=== PATIENT | female | born 1950 | race Caucasian/White ===

== ENCOUNTER 2016-11-29 19:53 | Emergency (ER) | payer BC ==
[2016-11-29] MEDS ORDERED: Meclizine TAB* 12.5 MG PO ONE ×2 (20:22→21:42)
--- NOTE | 2016-11-29 21:49 | UC ---
Dylan Esparza Alfonso, scribed for Will Bill MD on 11/29/16 at 2016 . Dizzy HPI HPI Summary: This patient is a 66 year old F presenting to [facility] accompanied by a male with a chief complaint of intermittent dizziness which began one week ago. The CC is described as lightheadedness. Symptoms aggravated by getting up too quickly and turning around and alleviated by spontaneous resolution. Patient reports ear ache (pressure), and unsteady gait. Patient denies CP, nausea, nasal congestion, hearing loss, ear ringing, SOB, increased urinary frequency, dysuria , near syncope, headache, visual changes, slurred speech, and weakness in arms. She reports she is scheduled to see her PCP in two weeks. PMHx of HLD. - History Of Current Complaint Chief Complaint: UCDizziness Stated Complaint: DIZZINESS Time Seen by Provider: 11/29/16 20:09 Hx Obtained From: Patient Onset/Duration: Sudden Onset, Lasting Weeks - 1, Still Present Timing: Intermittent Episode Lasting Severity Initially: Moderate Severity Currently: Moderate Character: Lightheaded Aggravating Factor(s): Change In Head Position - getting up too quickly and turning around Associated Signs And Symptoms: Positive: Unsteady Gait - Allergies/Home Medications Allergies/Adverse Reactions: Allergies Allergy/AdvReac Type Severity Reaction Status Date / Time No Known Allergies Allergy Verified 11/29/16 20:03 Home Medications: Home Medications Aspirin [Aspirin Adult Low Strengt] 81 mg PO 11/29/16 [History] Levothyroxine Sodium [Synthroid] 112 mcg PO 11/29/16 [History] Simvastatin TAB(NF) [Zocor(NF)] 20 mg PO 1700 11/29/16 [History Confirmed ] PMH/Surg Hx/FS Hx/Imm Hx Endocrine History: Dyslipidemia - Surgical History Surgical History: Yes Surgery Procedure, Year, and Place: deviated septum - Family History Known Family History: Positive: Cardiac Disease - MD father, brothers with stents. - Social History Alcohol Use: Occasionally Substance Use Type: None Smoking Status (MU): Never Smoked Tobacco Review of Systems ENT: Ear Ache, Other - Negative nasal congestion, hearing loss, ear ringing. Respiratory: Other - Negative SOB Cardiovascular: Other - Negative CP Gastrointestinal: Other - Negative nausea Genitourinary: Other - Negative increased urinary frequency, dysuria, Neurological: Other - Positive dizziness, lightheadedness, unsteady gait; negative near syncope, headache, visual changes, slurred speech, and weakness in arms All Other Systems Reviewed And Are Negative: Yes Physical Exam Triage Information Reviewed: Yes Vital Signs: Initial Vital Signs Temp 98.7 F 11/29/16 20:00 Pulse 89 11/29/16 20:00 Resp 18 11/29/16 20:00 Pulse Ox 98 11/29/16 20:00 Vital Signs Reviewed: Yes - Additional Comments The patient is well-nourished in no acute distress and in no acute pain. The skin is warm and dry and skin color reflects adequate perfusion. HEENT: The head is normocephalic and atraumatic. The pupils are equal and reactive. EOMI. Nystagmus. The conjunctivae are clear and without drainage. Nares are patent and without drainage. Mouth reveals moist mucous membranes and the throat is without erythema and exudate. The external ears are intact. Effusion in bilateral ears. No rhinorrhea. Neck is supple with full range of motion and non-tender. There are no carotid bruits. There is no neck vein distension. Respiratory: Chest is non-tender. Lungs are clear to auscultation and breath sounds are symmetrical and equal. Cardiovascular: Heart is regular rate and rhythm. There is no murmur or rub auscultated. There is no peripheral edema and pulses are symmetrical and equal. Abdomen: The abdomen is obese,soft, and non-tender. There are normal bowel sounds heard in all four quadrants and there is no organomegaly palpated. Musculoskeletal: There is no back pain noted. Extremities are non-tender with full range of motion. There is good capillary refill. There is no peripheral edema or calf tenderness elicited. Neurological: Patient is alert and oriented to person, place and time. The patient has symmetrical motor strength in all four extremities. Cranial nerves are grossly intact. No facial droop. Psychiatric: The patient has an appropriate affect and does not exhibit any anxiety or depression Diagnostics - EKG Cardiac Rate: NL - BPM 84 Cardiac Rhythm: Sinus: Normal - 2022. Poor R wave progression. Left axis. No ST elevation. Re-Evaluation - Re-Evaluation First Eval Re-Evaluation Time: 21:40 Change: Improved Comment: She states she is felling better. Dizzy Course/Dx - Course Course Of Treatment: This patient is a 66 year old F presenting to [facility] accompanied by a male with a chief complaint of intermittent dizziness which began one week ago. The CC is described as lightheadedness. Symptoms aggravated by getting up too quickly and turning around and alleviated by spontaneous resolution. Patient reports ear ache (pressure), and unsteady gait. Patient denies CP, nausea, nasal congestion, hearing loss, ear ringing, SOB, increased urinary frequency, dysuria, near syncope, headache, visual changes, slurred speech, and weakness in arms. She reports she is scheduled to see her PCP in two weeks. PMHx of HLD. Patient will be discharged with prescription for meclizine and follow up from PCP. The patient is agreeable with this plan. - Differential Dx/Diagnosis Differential Diagnosis/HQI/PQRI: Benign Paroxysmal Positional Vertigo, Coronary Artery Disease, Dysrhythmia, Hypovolemia, Labyrinthitis, Meniere's Disease, Other - vertigo Provider Diagnoses: labyrinthitis, HTN Discharge - Discharge Plan Condition: Stable Disposition: HOME Prescriptions: Meclizine HCl [Meclizine 25] 25 mg PO QID #30 tab Patient Education Materials: Labyrinthitis (ED) Referrals: Sadnra White MD [Primary Care Provider] - 1 Week Additional Instructions: FOLLOW UP WITH YOUR PRIMARY CARE PROVIDER REGARDING HIGH BLOOD PRESSURE WITHIN THE WEEK. The documentation as recorded by the Dylan diez Alfonso accurately reflects the service I personally performed and the decisions made by me, Will Bill MD.
[2016-11-29 22:18] VITALS: BP 150/81
== END 2016-11-29 22:00 | disposition home or self-care (01) ==
LOC: UCEAST 19:53
DX: H83.09 Labyrinthitis, unspecified ear (principal); I10 Essential (primary) hypertension; E78.5 Hyperlipidemia, unspecified; R26.9 Unspecified abnormalities of gait and mobility; Z79.82 Long term (current) use of aspirin
CPT/HCPCS: 93005; 99202; A9270-GY; G0463

== ENCOUNTER 2018-09-02 06:59 | Inpatient (IN) | payer MEDICARE, BC ==
--- NOTE | 2018-09-02 07:31 | ED ---
HPI Chest Pain - HPI Summary HPI Summary: This patient is a 68 year old F presenting to ED with a chief complaint of intermittent CP since 0500 this morning. The CC is described as radiating to the L shoulder blade, L jaw, and a bit into the L arm and alleviated a bit after onset. Patient has not had any ASA today. The patient rates the pain 7/10 in severity. Symptoms aggravated by nothing. Symptoms alleviated by nothing. Patient reports SOB. Patient denies edema. Denies hx of CAD and HTN. PMHx of HLD. Fam Hx father of DC, two sisters and one brother who both had stents, one brother who of DC. Patient is a nonsmoker and does not drink alcohol. Patient had a stress test done about 5-6 years ago and she did fine. - History of Current Complaint Chief Complaint: EDChestPainROMI Hx Obtained From: Patient Onset/Duration: Started Hours Ago - since 0500 this morning, Still Present Timing: Intermittent, Lasting Hours Initial Severity: Severe Current Severity: Moderate Pain Intensity: 7 Pain Scale Used: 0-10 Numeric - currently 7/10 Chest Pain Radiates: Yes Chest Pain Radiates To:: Shoulder - L shoulder blade, Arm - a bit into the left arm, Jaw - left Aggravating Factor(s): Nothing Alleviating Factor(s): Nothing Associated Signs and Symptoms: Positive: Chest Pain, Shortness of Breath. Negative: Swelling, Edema - Allergy/Home Medications Allergies/Adverse Reactions: Allergies Allergy/AdvReac Type Severity Reaction Status Date / Time No Known Allergies Allergy Verified 11/29/16 20:03 PMH/Surg Hx/FS Hx/Imm Hx Endocrine/Hematology History: Reports: Hx Thyroid Disease Denies: Hx Diabetes Cardiovascular History: Reports: Hx Hypercholesterolemia Denies: Hx Hypertension - Surgical History Surgery Procedure, Year, and Place: deviated septum Infectious Disease History: No Infectious Disease History: Denies: Traveled Outside the [place] in Last 30 Days - Family History Known Family History: Positive: Cardiac Disease - [place] father, brothers with stents. - Social History Alcohol Use: Occasionally Substance Use Type: Reports: None Smoking Status (MU): Former Smoker Review of Systems Negative: Fever, Chills Negative: Erythema Negative: Sore Throat Positive: Chest Pain Positive: Shortness Of Breath. Negative: Cough Negative: Abdominal Pain, Vomiting, Nausea Negative: dysuria, hematuria Negative: Myalgia, Edema Negative: Rash Neurological: Other - denies dizziness All Other Systems Reviewed And Are Negative: Yes Physical Exam - Summary Physical Exam Summary: Constitutional: Well-developed, Well-nourished, Alert. (-) Distressed Skin: Warm, Dry HENT: Normocephalic; Atraumatic Eyes: Conjunctiva normal Neck: Musculoskeletal ROM normal neck. (-) JVD, (-) Stridor, (-) Tracheal deviation Cardio: Rhythm regular, rate normal, Heart sounds normal; Intact distal pulses; The pedal pulses are 2+ and symmetric. Radial pulses are 2+ and symmetric. (-) Murmur Pulmonary/Chest wall: Effort normal. (-) Respiratory distress, (-) Wheezes, (-) Rales Abd: Soft, (-) tenderness, (-) Distension, (-) Guarding, (-) Rebound Musculoskeletal: (-) Edema Lymph: (-) Cervical adenopathy Neuro: Alert, Oriented x3 Psych: Mood and affect Normal Triage Information Reviewed: Yes Vital Signs On Initial Exam: Initial Vitals Pulse BP Pulse Ox 100 163/86 100 09/02/18 07:10 09/02/18 07:10 09/02/18 07:10 Vital Signs Reviewed: Yes Diagnostics - Vital Signs Vital Signs Temp Pulse Resp BP Pulse Ox 09/02/18 07:28 92 25 09/02/18 07:14 98.7 F 95 25 163/86 99 09/02/18 07:11 99 99 09/02/18 07:10 100 163/86 100 - Laboratory Result Diagrams: 09/02/18 07:50 09/02/18 07:50 Lab Statement: Any lab studies that have been ordered have been reviewed, and results considered in the medical decision making process. - Radiology CXR Radiology Interpretation Completed By: Radiologist Summary of Radiographic Findings: Potential bronchopneumonia superimposed on chronic obstructive pulmonary disease. Correlate with clinical assessment. Dr. Reynolds has reviewed this radiology report. - EKG 0703 Cardiac Rate: NL - 96 BPM EKG Rhythm: Sinus Rhythm Summary of EKG Findings: No STEMI 0826 Cardiac Rate: NL - 93 BPM EKG Rhythm: Sinus Rhythm Summary of EKG Findings: No STEMI Re-Evaluation - Re-Evaluation First Eval Re-Evaluation Time: 08:44 Change: Improved Comment: The patient says that her pain is down to 3/10. Chest Pain Course/Dx - Course Assessment/Plan: This patient is a 68 year old F presenting to ED with a chief complaint of intermittent CP since 0500 this morning. In the ED course, the patient was given NTG and ASA. 1st EKG reveals NSR at 96 BPM and no STEMI. 2nd EKG reveals NSR at 93 BPM and no STEMI. CXR reveals potential bronchopneumonia superimposed on chronic obstructive pulmonary disease. Correlate with clinical assessment. Consulted Dr. Robin at 0837 about the patient's case and he says that the patients signs and sx are consistent with acute DC. He recommends brilinta, heparin drip, and bolus. He will come to see the patient in the ED. Consulted Dr. Henry at 0929 about the patient's case and she accepts the patient for admission. The patient will be admitted with dx of NSTEMI and ACS. Patient understands and agrees with this plan. - Chest Pain Differential Diagnosis/HQI/PQRI: ACS, Other: - NSTEMI - Diagnoses Provider Diagnoses: NSTEMI (non-ST elevated myocardial infarction) - Provider Notifications Discussed Care Of Patient With: Robbie Robin Time Discussed With Above Provider: 08:37 Instructed by Provider To: Other - Consulted Dr. Robin at 0837 about the patient's case and he says that the patients signs and sx are consistent with acute DC. He recommends brilinta, heparin drip, and bolus. He will come to see the patient in the ED. Consulted Dr. Henry at 0929 about the patient's case and she accepts the patient for admission. - Critical Care Time Critical Care Time: 30-74 min - 45 minutes Discharge - Sign-Out/Discharge Documenting (check all that apply): Patient Departure - admit Patient Received Moderate/Deep Sedation with Procedure: No - Discharge Plan Condition: Stable Disposition: ADMITTED TO [facility] Referrals: Sandra White MD [Primary Care Provider] - - Attestation Statements Document Initiated by Scribe: Yes Documenting Scribe: Mason Cavazos Provider For Whom Scribe is Documenting (Include Credential): Wilman Reynolds MD Scribe Attestation: Mason Esparza, scribed for Wilman Reynolds MD on 05/16/19 at 0937. Status of Scribe Document: Ready
[2018-09-02] MEDS ORDERED: Aspirin 81 mg CHEW TAB* 81 MG TAB.CHEW PO ONE (07:37)
[2018-09-02] MEDS ORDERED: Nitroglycerin TAB 0.4 MG* 0.4 MG TAB SL ONE (07:37)
[2018-09-02 08:09] LABS: Hematocrit 43 % (35-47); Hemoglobin 14.2 g/dL (12.0-16.0); Mean Corpuscular HGB Conc 33 g/dL (31-36); Mean Corpuscular Hemoglobin 31 pg (27-31); Mean Corpuscular Volume 93 fL (80-97); Mean Platelet Volume 9.7 fL (7.4-10.4); Platelet Count 225 10^3/uL (150-450); Red Blood Count 4.59 10^6 /uL (3.70-4.87); Red Cell Distribution Width 13 % (10.5-15); White Blood Count 7.1 10^3/uL (3.5-10.8)
[2018-09-02 08:14] LABS: Activated Partial Thrombo Time 28.7 seconds (26.0-36.3); INR 0.96 (0.82-1.09)
[2018-09-02 08:29] LABS: BUN/Creatinine Ratio 20.2 (8-20); Calcium 9.6 mg/dL (8.6-10.3); EGFR African American 81.1 (>60); Potassium 4.1 mmol/L (3.5-5.0); Total Bilirubin 0.5 mg/dL (0.2-1.0); Troponin I 0.12 ng/mL (<0.04)
[2018-09-02] MEDS ORDERED: Nitro 2% OINT* (Nitroglycerin) 1 INCH/PAK PAK TOPICAL ONE (08:42)
[2018-09-02] MEDS ORDERED: Ticagrelor* 90 MG TAB PO ONE (08:49)
[2018-09-02] MEDS ORDERED: Heparin VIAL(*) 5000 UNITS/ML VIAL (FIVE THOUSAND) IV PRN (08:58)
[2018-09-02] MEDS ORDERED: Heparin DRIP 25,000 UNITS(*) 25,000 UNITS/500 ML BAG IV SCH (09:00)
[2018-09-02] MEDS ORDERED: Metoprolol Tartrate IV* 1 MG/ML 5 ML VIAL IV ONE ×2 (09:32→09:40)
[2018-09-02] MEDS ORDERED: Heparin VIAL(*) 5000 UNITS/ML VIAL (FIVE THOUSAND) IV SCH (10:00)
--- NOTE | 2018-09-02 10:01 | CONSULT ---
Subjective Date of Service: 09/02/18 Interval History: Date of admission and consult 09/02/2018 Service; Hospitalist PMD: Dr. White CC: Chest pain Reason for consult: Suspected type 1 CA HPI Mercy Sanz is a 68 year old woman with a history as below. She limited by knee pain up stairs but otherwise has no activity restrictions. This AM at 5 :30 she developed chest, b/l jaw and left scapular pain. She presented to the ER and ruled in for ACS with an abnormal troponin level. She received aspirin 325 mg, SL NTG x 2 and topical nitro paste. Her pain went from a 10/10 to now resolved. She denies any kidney problems, bleeding, transfusions or allergies. Rare nsaid use. Her and daughter are at bedside pmhx: Obesity NINA on CPAP Dyslipidemia on statin Hypothyroidism Cardiac murmur, full work-up in [place] 7 years ago, never had an invasive angiogram Pshx: dental work, needs additional we discussed would need to be done on dapt if pci performed allergies: NKDA Soc hx: Quit smoking 25 years ago, no drugs 6 months of year near [facility] Fam hx: strong for CAD, sibling and father in 70's from [place], multiple siblings with pci Medications Active Medications: Atorvastatin Calcium (Lipitor*) 80 mg PO 2100 ARIELLE Heparin Sodium (Porcine) (Heparin Vial(*)) 0 units IV .PER PROTOCOL PRN PRN Reason: SEE PROTOCOL Heparin Sodium (Porcine) (Heparin Vial(*)) 4,000 units IV ED ONCE ARIELLE Last Admin: 09/02/18 09:46 Dose: 4,000 units Heparin Sodium/Dextrose (Heparin Drip 25,000 Units(*)) 25,000 units in 500 mls @ 0 mls/hr IV PER RATE ARIELLE; Protocol Last Admin: 09/02/18 09:49 Dose: 17 mls/hr Metoprolol Tartrate (Lopressor Tab*) 25 mg PO Q8H COUNT INCLUDES THE [facility] IV lopressor 5 mg x 1 given brilinta 180 mg x 1 given topical nitroglycerine in pace Home Medications: Aspirin [Aspirin Adult Low Strengt] 81 mg PO DAILY 11/29/16 [History Confirmed 09/02/18] Levothyroxine Sodium [Synthroid] 112 mcg PO DAILY 11/29/16 [History Confirmed ] Simvastatin TAB(NF) [Zocor(NF)] 20 mg PO 1700 11/29/16 [History Confirmed ] Review of Systems - Measurements Intake and Output: Intake and Output Last 24 Hours 08/31/18 09/01/18 09/02/18 09/03/18 06:59 06:59 06:59 06:59 Weight 230 lb - Review of Systems Constitutional Symptoms: Negative: Weight Gain, Weight Loss, Weakness Dermatology: Negative: Cancer, Skin Lumps HEENT: Negative: Change in Hearing, Vertigo Eyes: Negative: Change in Vision, Double Vision Thyroid: Positive: Primary Hypothyroidism Negative: Palpitations, Primary Hyperthyroidism, Weight Loss, Weight Gain Pulmonary: Negative: Cough, Sputum, Hemoptysis, Respiratory Distress, Shortness of Breath Cardiology: Positive: Chest Pain, Other Negative: Shortness of Breath, Palpitations, Swelling of Ankles, Peripheral Vascular Dis, Edema, Faintness, Syncope, Claudication, Paroxysmal Nocturnal Dyspnea, Orthopnea Gastroenterology: Negative: Haematemesis, Melena Genital - Urinary: Negative: Dysuria, Hematuria Musculoskeletal: Negative: Joint Pain, Joint Stiffness Endocrinology: Positive: Obesity Negative: Diabetes, Polydipsia, Polyuria Hematologic/Lymphatic: Positive: Use of Antiplatelet Drugs, Other Negative: Use of Anticoagulant Neurology: Negative: Hx of Stroke\TIA, Hx Seizures Psychiatry: Negative: Unusual Anxiety, Suicidal Ideation Allergic/Immunologic: Negative: Hx HIV, Immunocompromise Review of Systems Statement: All other review of systems negative, unless stated above. Objective Vital Signs: Temp Pulse Resp BP Pulse Ox 98.7 F 91 16 141/81 97 09/02/18 07:14 09/02/18 08:00 09/02/18 08:00 09/02/18 07:59 09/02/18 08:00 Oxygen Devices in Use Now: None Appearance: nad, pleasant Ears/Nose/Mouth/Throat: Clear Oropharnyx, Mucous Membranes Moist Neck: NL Appearance and Movements; NL JVP, Trachea Midline Respiratory: Symmetrical Chest Expansion and Respiratory Effort, Clear to Auscultation Cardiovascular: RRR, - - 2/6 systolic murmur, distant heart sounds Abdominal: NL Sounds; No Tenderness; No Distention Extremities: No Edema, No Clubbing, Cyanosis Skin: No Rash or Ulcers Neurological: Alert and Oriented x 3 Laboratory Results: 09/02/18 07:50 09/02/18 07:50 INR (Anticoag Therapy) 0.96 (0.82-1.09) 09/02/18 07:50 APTT 28.7 seconds (26.0-36.3) 09/02/18 07:50 Total Bilirubin 0.50 mg/dL (0.2-1.0) 09/02/18 07:50 AST 22 U/L (13-39) 09/02/18 07:50 ALT 15 U/L (7-52) 09/02/18 07:50 Alkaline Phosphatase 82 U/L (34-104) 09/02/18 07:50 B-Natriuretic Peptide 135 pg/mL (<=100) H 09/02/18 07:50 Total Protein 8.0 g/dL (6.4-8.9) 09/02/18 07:50 Albumin 4.0 g/dL (3.2-5.2) 09/02/18 07:50 Globulin 4.0 g/dL (2-4) 09/02/18 07:50 Albumin/Globulin Ratio 1.0 (1-3) 09/02/18 07:50 09/02/18 07:50 Troponin I 0.12 H* Diagnostic Imaging: Exam Date: 09/02/18718 ADM Status: REG ER IMPRESSION: #. Potential bronchopneumonia superimposed on chronic obstructive pulmonary disease. Correlate with clinical assessment. EKG Data: ekg 08/23/2018: NSR, LVH with repolarization changes, grossly unchanged on repeat. No significant changes from 11/29/2016 ekg, Assessment/Plan 1. NSTEMI, suspect type 1 CA - Pain free now, no arrhythmias, CHF or hemodynamic instability 2. Obesity 3. Cardiac murmur 4. Dyslipidemia 5. NINA on CPAP - Continue aspirin 81 mg po daily (ordered) - Continue brilinta 90 mg po bid (ordered) - Continue atorvastatin 80 mg po daily (ordered) in place of home zocor - Continue metoprolol 25 mg po tid after IV 5mg lopressor (ordered) - continue heparin gtt (ordered) - Echo (ordered) - Cardiac catheterization with intent for revascularization indicated and recommended. Risks, benefits alternatives discussed and patient wishes to proceed. Ok for breakfast then NPO. Discussed with Dr. Groves Thank you for allowing me to participate in the cardiovascular care of this patient. Please do not hesitate to contact me with questions or concerns.
[2018-09-02] MEDS: Metoprolol Tartrate TAB* 25 MG PO SCH ×2 (10:31→17:27)
[2018-09-02] MEDS ORDERED: Perflutren Lipid Microsphere* 3 ML VIAL ONE (12:23)
[2018-09-02] MEDS ORDERED: NS 0.9% 1000 ML** 1,000 ML IV SCH ×2 (13:00→16:00)
--- NOTE | 2018-09-02 13:44 | ECHO ---
*[facility]* [place] [address] Fax #: [phone] Transthoracic Echocardiogram Patient: Umu, Height: 62 in / Mercy 157.5 cm : 1950 Weight: 229.5 lb / Study Date: 09/02/2018 104.3 kg Age: 68 BP: 141 / 94 Gender: F BMI/BSA: 42.1 HR: 82 bpm kg/m^2 / 2.03 m^2 *[employer] Former: * Kitty Mendes RDCS RN *Referring Physician: * Robbie Robin MD *Reading Physician: * Robbie Robin MD Indications: Myocardial Infarction (new). History: Risk factors: Former tobacco use. Obese. Dyslipidemia. Conclusions Summary: 1. Left ventricle: The cavity size is normal. Wall thickness is normal. Systolic function is normal. The estimated ejection fraction is 55-60%. Definity used to optimize study. The mid inferolateral wall into the apical territory appears mildly hypokinetic. 2. Right ventricle: The cavity size is normal. Systolic function is normal. 3. Left atrium: The atrium is normal in size. 4. Aortic valve: The findings are consistent with very mild stenosis. 5. Tricuspid valve: Normal estimated pasp. Recommendations: None prior for comparison at time of interpretation Study data: Transthoracic echocardiogram. Procedure: Transthoracic echocardiography was performed. Image quality was fair. The study was technically limited due to body habitus and smoking history. Intravenous Definity 3 ml was administered. Image enhancement administered by Dayday Bustamante RN. Complete 2D, spectral Doppler, and color flow Doppler. Patient status: Inpatient. Patient room number: ED 3. Rhythm: Normal sinus rhythm. Findings Left ventricle: The cavity size is normal. Wall thickness is normal. Systolic function is normal. The estimated ejection fraction is 55-60%. There is no consistent Doppler evidence of clinically significant diastolic dysfunction. Right ventricle: The cavity size is normal. Systolic function is normal. Systolic pressure is within the normal range. The estimated peak pressure is 30 mm Hg. Left atrium: The atrium is normal in size. Right atrium: The atrium is normal in size. Mitral valve: The leaflets are mildly thickened. There is no evidence of stenosis. There is trace regurgitation. Aortic valve: The annulus is mildly calcified. The leaflets are mildly thickened. And mildly calcified Thickening, consistent with sclerosis. Valve mobility is mildly restricted. The findings are consistent with very mild stenosis. There is no significant regurgitation. Tricuspid valve: The valve is structurally normal. There is no evidence of stenosis. There is trace regurgitation. Normal estimated pasp. Pulmonic valve: The valve is structurally normal. There is no evidence of stenosis. There is trace regurgitation. Aorta: Aortic root: The aortic root is not dilated. Ascending aorta: The ascending aorta is not dilated. Aortic arch: The aortic arch is not dilated. Pericardium: There is no pericardial effusion. Pulmonary arteries: The main pulmonary artery is normal-sized. Systemic veins: Inferior vena cava: The vessel is normal in size. The respirophasic diameter changes are in the normal range (>= 50%). Measurements Left ventricle Value Ref Aortic valve Value Ref KRYSTIAN, LAX 4.6 cm 3.8 - 5.2 Marilou diam, ED 2.0 cm ----- ESD, LAX 3.4 cm 2.2 - 3.5 Peak v, S 2.2 m/sec ----- FS, LAX 28 % 27 - 45 VTI, S 44.8 cm ----- PW, ED, LAX (H) 1.0 cm 0.6 - 0.9 Mean grad, S 11.0 mm Hg ----- FS 28 % 27 - 45 Peak grad, S 19.0 mm Hg ----- IVS/PW, ED 0.99 --------- LVOT/AV, VTI ratio 0.49 ----- E', lat marilou, TDI (L) 8.3 cm/sec >=10.0 JOHANN, VTI 1.50 cm^2 -- --- E/e', lat marilou, TDI 9 --------- JOHANN, Vmax 1.60 cm^2 ----- E', med marilou, TDI (L) 5.7 cm/sec >=7.0 E/e', med marilou, TDI 14 --------- Mitral valve Value Ref E', avg, TDI 7.0 cm/sec --------- Peak E 0.78 m/sec ----- E/e', avg, TDI 11 <=14 Peak A 1.09 m/sec -- --- Decel time 296 ms ----- LVOT Value Ref Peak grad, D 2.4 mm Hg ----- Diam, S 2.00 cm --------- Peak E/A ratio 0.7 ----- Area 3.1 cm^2 --------- Peak portia, S 1.1 m/sec --------- Pulmonic valve Value Ref VTI, S 22.0 cm --------- Peak v, S 1.09 m/sec ----- Mean grad, S 3 mm Hg --------- Peak grad, S 5.0 mm Hg ----- SV 67 ml --------- Tricuspid valve Value Ref Right ventricle Value Ref TR peak v 2.6 m/sec <=2.8 KRYSTIAN, LAX 2.4 cm --------- Peak RV-RA grad, S 27 mm Hg ----- KRYSTIAN minor ax, A4C 0.0 cm --------- KRYSTIAN minor ax, A4C mid 3.1 cm 1.9 - 3.5 Aortic root Value Ref Root diam 2.8 cm <4.2 Left atrium Value Ref ML dim, A4C 4.3 cm --------- Ascending aorta Value Ref SI dim, A4C 4.9 cm --------- AAo AP diam, S 3.0 cm ----- Vol/bsa, ES, 1-p A4C 27 ml/m^2 11 - 40 Vol/bsa, ES, 1-p A2C 32 ml/m^2 13 - 40 Aortic arch Value Ref Vol/bsa, ES, A/L 32 ml/m^2 16 - 34 Arch diam 2.3 cm ----- Right atrium Value Ref Decending aorta Value Ref ML dim, ES, A4C 3.5 cm 2.6 - 4.4 [place] portia 0.59 m/sec ----- SI dim, ES, A4C 4.0 cm 3.4 - 5.3 Inferior vena cava Value Ref Diam 1.9 cm ----- Legend: (L) and (H) keeley values outside specified reference range. Prepared and electronically signed by Robbie Robin MD 09/02/2018 13:43
[2018-09-02] MEDS ORDERED: fentaNYL* 50 MCG/ML 2 ML VIAL (100 MCG VIAL) ONE (14:37)
[2018-09-02] MEDS ORDERED: Midazolam* 1 MG/ML 5 ML VIAL (5 MG) ONE (14:37)
[2018-09-02] MEDS ORDERED: Heparin(*) 1000 UNIT/ML 10 ML VIAL CATH LAB IV ONE (14:38)
[2018-09-02] MEDS ORDERED: Iohexol 350 (CONTRAST) 200 ML MDV IV ONE (14:38)
[2018-09-02] MEDS ORDERED: VERAPAMIL 2.5 MG/ML 2 ML VIAL ** 5 mg/2 ml ONE (14:38)
[2018-09-02] MEDS ORDERED: Heparin 2 UNITS/ML IVPREMIX* 3,000 UNIT/1,500 ML BAG IV ONE (14:38)
[2018-09-02] MEDS ORDERED: nitroGLYCERIN DRIP* 25,000 MCG/250 ML BTL ONE (14:38)
[2018-09-02] MEDS ORDERED: Lidocaine 1% INJ* 10 MG/ML 30 ML SDV ONE (14:38)
[2018-09-02] MEDS ORDERED: Iodixanol 320 (CONTRAST) 100 ML SDV ONE (14:39)
[2018-09-02] MEDS ORDERED: Clopidogrel TAB* 300 MG PO ONE (15:50)
[2018-09-02 16:43] LABS: Troponin I 5.89 ng/mL (<0.04)
--- NOTE | 2018-09-02 17:27 | HP ---
Amended report to enter cosigning physician. CC: Dr. Robin; Dr. Groves; Dr. White* HISTORY AND PHYSICAL: DATE OF ADMISSION: 09/02/18 PROVIDER: Cindy Vieira NP PRIMARY CARE PROVIDER: Dr. Sandra White ATTENDING PHYSICIAN WHILE IN THE HOSPITAL: Dr. Ever Noe* (dictated by Cindy Vieira NP). CHIEF COMPLAINT: Chest pain. HISTORY OF PRESENT ILLNESS: Ms. Sanz is a 68-year-old female with past medical history significant for obesity; obstructive sleep apnea, on CPAP; dyslipidemia; hypothyroid; and cardiac murmur who presented to the emergency room with complaints of chest pain. The patient reports that approximately 5: 15 this morning she developed chest pain that was sharp and stabbing in nature radiated down her left arm into her left shoulder blade as well as up into bilateral jaws. She reports that the pain lasted for approximately 2-1/2 hours. She reports nothing made it worse. She does report that after receiving nitro sublingual, her pain did improve. The patient also reports that she had some shortness of breath with exertion on Thursday and has been having shortness of breath with walking upstairs since July. She reported she thought this was related to her difficulty with ambulation due to bilateral knee pain. While in the emergency room, she had routine lab work drawn. She had aspirin 325 mg, nitro sublingual x2 and then topical paste applied to her chest. She was started on a heparin drip. She also received Brilinta, metoprolol, and was seen in consultation by Dr. Robin from Cardiology who has ultimately recommended a cardiac catheterization. Due to her chest pain and findings of a non-STEMI, we were asked to see and evaluate her for admission. PAST MEDICAL HISTORY: 1. Obesity. 2. Obstructive sleep apnea, on CPAP. 3. Dyslipidemia. 4. Hypothyroid. 5. Cardiac murmur. PAST SURGICAL HISTORY: Dental surgery. HOME MEDICATIONS: Include: 1. Simvastatin 20 mg p.o. daily. 2. Levothyroxine 112 mcg p.o. daily. 3. Aspirin 81 mg p.o. daily. ALLERGIES: No known drug allergies. FAMILY HISTORY: Brother, mother, father all have had MIs. Brother at the age of 71 from an CA. Mother had angina. No reported history of diabetes or cancer in the family. The patient quit smoking approximately 25 years ago, prior to that she smoked a pack a day for 10 to 12 years. She does report occasional alcohol use. No illicit drug use. She is . Surrogate decision maker in the event she is unable to make her own decisions is her or daughter, Juju. She is a full code. REVIEW OF SYSTEMS: She denies any fever or unintended weight loss. She does report chest pain. She denies any edema. Denies any cough, hemoptysis. She does report shortness of breath with exertion. No nausea, vomiting, diarrhea, abdominal pain, gross hematuria, dysuria, focal weakness, or sensory loss. Denies any visual complaints, dysphagia. She does complain of bilateral knee pain x10 years, this progressively worsened. She does have complain of a rash to her posterior neck at the base of her hairline. Denies any psychosis or anxiety. PHYSICAL EXAMINATION GENERAL: At this time, Ms. Sanz is a 68-year-old female. She is resting comfortably on the stretcher in the emergency room. She is alert and oriented x3. She is in no acute distress. VITAL SIGNS: Blood pressure 127/74, heart rate 78, respirations are 18, O2 saturation 95%, temperature was 98.7. HEENT: Head is atraumatic, normocephalic. Eyes: EOMs are intact. Sclerae are anicteric and not pale. Oral mucosa appeared to be moist. NECK: Supple. Posterior neck does have a circular erythemic rash with scaly skin noted to the center with a raised erythemic area at the border. LUNGS: Clear to auscultation bilaterally. No wheezes, rales or rhonchi. CARDIAC: S1, S2. No rubs or gallops. ABDOMEN: Obese, soft, nontender. Bowel sounds are present x4. MUSCULOSKELETAL: She can move all 4 extremities with 5/5 strength. There is no clubbing or cyanosis. NEUROLOGIC: She is awake, alert and oriented x4. Speech is clear. Thought process is intact. Cranial nerves II through XII are grossly intact. SKIN: She does have a circular erythematous rash noted to her posterior neck with raised border and scaly center. PSYCH: She is alert and oriented x4. She is calm and cooperative. DIAGNOSTIC STUDIES/LAB DATA: WBCs were 7.1, RBCs 4.59, hemoglobin 14.2, hematocrit was 43, platelet count was 225. INR is 0.96, APTT was 27. Sodium 137, potassium 4.1, chloride 106, carbon dioxide was 22, anion gap was 9, BUN was 17, creatinine 0.84, glucose was 112, calcium 9.6, ASTs were 22, ALTs were 15, alkaline phosphatase is 82. Troponin is 0.12. BNP was 135. The patient had a chest x-ray, radiologist's impression: Potential bronchopneumonia superimposed with chronic obstructive pulmonary disease. She had transthoracic echocardiogram. Left ventricular size cavity is within normal limits, wall thickness is normal. Systolic function is normal. Estimated ejection fraction is 55% to 60%. Definity was used to optimize the study. The mid inferior lateral wall into the apical territory appears to be mildly hypokinetic. Right ventricle cavity size is normal. Systolic function is normal. Left atrium is in normal size. Aortic valve, the findings are consistent with very mild stenosis. Tricuspid valve normal. Estimated PS, PASP. She had electrocardiogram, which showed sinus rhythm at a rate of 93. ASSESSMENT AND PLAN: Ms. Sanz is a 68-year-old female with past medical history significant for obesity; obstructive sleep apnea, on CPAP; dyslipidemia ; and hypothyroid who presented to the emergency room with chest pain. She will be admitted under observation for: 1. Chest pain. I suspect this is related to a [id number] myocardial infarction. The patient does have an elevated troponin of 0.12. The patient did report relief of her chest pain with nitro sublingual and nitro paste. She is currently pain free at this time. She was seen in consultation by Dr. Robin from Cardiology who has recommended cardiac catheterization. She has received aspirin 324 mg. She received Brilinta. She also received Lopressor in the emergency room and was started on heparin drip. The patient is scheduled to have a cardiac catheterization later this afternoon. Disposition will be pending cardiac catheterization. Further recommendations will be based on Cardiology and Interventional Cardiology's recommendations. 2. Dyslipidemia. She will continue on atorvastatin 80 mg p.o. daily. 3. Hypothyroid. She will continue on levothyroxine 112 mcg p.o. daily. 4. Obstructive sleep apnea. She should wear CPAP at night. 5. Ringworm. will order miconazole cream for posterior neck. 6. Diet. The patient can have a heart healthy diet. 7. Code status. She is a full code. 8. DVT prophylaxis. She is currently on a heparin drip. 9. Disposition. Pending cardiac catheterization results on whether the patient would be admitted to the ICU or to the medical floor. TIME SPENT: Time spent on this admission was approximately 60 minutes, greater than half that time was spent at the bedside reviewing the events leading thus far to her hospitalization, performing a physical exam and reviewing my plan of care. I have discussed this with my attending Dr. Ever Noe. She is in agreement with my plan. CINDY VIEIRA, ENTRANCE GUARD [id number]/[facility] #: [id number] [place]
[2018-09-02] MEDS ORDERED: Ticagrelor* 90 MG TAB PO SCH (21:00)
[2018-09-02] MEDS: Atorvastatin* 80 MG TAB PO SCH (21:28)
[2018-09-02] MEDS: Acetaminophen TAB* 325 MG PO PRN (21:28)
[2018-09-02 22:17] LABS: Troponin I 5.88 ng/mL (<0.04)
[2018-09-03] MEDS: Acetaminophen TAB* 325 MG PO PRN ×2 (03:21→19:44)
[2018-09-03 05:06] LABS: ABS Basophils 0.1 10^3/ul (0-0.2); ABS Eosinophils 0.2 10^3/ul (0-0.6); ABS Lymphocytes 1.8 10^3/ul (1.0-4.8); ABS Monocytes 0.7 10^3/ul (0-0.8); ABS Neutrophils 4.9 10^3/ul (1.5-7.7); Eosinophil % 2.6 %; Hematocrit 38 % (35-47); Hemoglobin 12.7 g/dL (12.0-16.0); Lymphocyte % 23.8 %; Mean Corpuscular HGB Conc 34 g/dL (31-36); Mean Corpuscular Hemoglobin 31 pg (27-31); Mean Corpuscular Volume 93 fL (80-97); Mean Platelet Volume 9.7 fL (7.4-10.4); Platelet Count 209 10^3/uL (150-450); Red Blood Count 4.06 10^6 /uL (3.70-4.87); Red Cell Distribution Width 14 % (10.5-15); White Blood Count 7.7 10^3/uL (3.5-10.8)
[2018-09-03 05:40] LABS: BUN/Creatinine Ratio 18.5 (8-20); Calcium 8.8 mg/dL (8.6-10.3); EGFR African American 84.6 (>60); EGFR Non-African American 69.9 (>60); HDL Cholesterol 48.7 mg/dL
[2018-09-03] MEDS: Levothyroxine TAB* 112 MCG TAB PO SCH (06:18)
[2018-09-03] MEDS: Clopidogrel TAB* 75 MG PO SCH (07:28)
[2018-09-03] MEDS: Aspirin 81 mg CHEW TAB* 81 MG TAB.CHEW PO SCH (07:28)
[2018-09-03] MEDS: Losartan TAB* 25 MG PO SCH (07:28)
[2018-09-03] MEDS: Miconazole TOPICAL CREAM 2%* 30 GM TOPICAL SCH ×2 (07:36→20:25)
[2018-09-03 08:17] LABS: Troponin I 3.42 ng/mL (<0.04)
--- NOTE | 2018-09-03 08:55 | PN ---
Subjective Date of Service: 09/03/18 Interval History: f/u AMI no cp or dyspnea or lightheadedness no wrist or hand pain tele: sinus rhythm, pvc's Medications Active Medications: Acetaminophen (Tylenol Tab*) 650 mg PO Q4H PRN PRN Reason: FEVER/PAIN Last Admin: 09/03/18 03:21 Dose: 650 mg Aspirin (Aspirin 81 Mg Chew Tab*) 81 mg PO DAILY [facility] Last Admin: 09/03/18 07:28 Dose: 81 mg Atorvastatin Calcium (Lipitor*) 80 mg PO 2100 [facility] Last Admin: 09/02/18 21:28 Dose: 80 mg Clopidogrel Bisulfate (Plavix Tab*) 75 mg PO DAILY [facility] Last Admin: 09/03/18 07:28 Dose: 75 mg Levothyroxine Sodium (Synthroid Tab*) 112 mcg PO 0600 [facility] Last Admin: 09/03/18 06:18 Dose: 112 mcg Losartan Potassium (Cozaar Tab*) 25 mg PO DAILY [facility] Last Admin: 09/03/18 07:28 Dose: 25 mg Metoprolol Succinate (Toprol Xl Tab*) 50 mg PO DAILY [facility] Miconazole Nitrate (Monistat 2%*) 1 applic TOPICAL BID [facility] Last Admin: 09/03/18 07:36 Dose: Not Given Objective Vital Signs: Temp Pulse Resp BP Pulse Ox 98.4 F 75 21 125/61 97 09/03/18 08:00 09/03/18 08:00 09/03/18 08:00 09/03/18 07:01 09/03/18 08:00 Oxygen Devices in Use Now: None Appearance: nad, pleasant Ears/Nose/Mouth/Throat: Clear Oropharnyx, Mucous Membranes Moist Neck: NL Appearance and Movements; NL JVP, Trachea Midline Respiratory: Symmetrical Chest Expansion and Respiratory Effort, Clear to Auscultation Cardiovascular: RRR, - - 2/6 systolic murmur, distant heart sounds Abdominal: NL Sounds; No Tenderness; No Distention Extremities: No Edema, No Clubbing, Cyanosis, - - wrist puncture site intact, hand warm and well perfused, brisk capillary refill, pulse felt distal to puncture site, no swelling Skin: No Rash or Ulcers Neurological: Alert and Oriented x 3 Laboratory Results: 09/03/18 04:54 09/03/18 04:54 INR (Anticoag Therapy) 0.96 (0.82-1.09) 09/02/18 07:50 APTT 28.7 seconds (26.0-36.3) 09/02/18 07:50 Total Bilirubin 0.50 mg/dL (0.2-1.0) 09/02/18 07:50 AST 22 U/L (13-39) 09/02/18 07:50 ALT 15 U/L (7-52) 09/02/18 07:50 Alkaline Phosphatase 82 U/L (34-104) 09/02/18 07:50 B-Natriuretic Peptide 135 pg/mL (<=100) H 09/02/18 07:50 Total Protein 8.0 g/dL (6.4-8.9) 09/02/18 07:50 Albumin 4.0 g/dL (3.2-5.2) 09/02/18 07:50 Globulin 4.0 g/dL (2-4) 09/02/18 07:50 Albumin/Globulin Ratio 1.0 (1-3) 09/02/18 07:50 Triglycerides 119 mg/dL 09/03/18 04:54 Cholesterol 163 mg/dL 09/03/18 04:54 LDL Cholesterol 91 mg/dL 09/03/18 04:54 HDL Cholesterol 48.7 mg/dL 09/03/18 04:54 09/02/18 09/02/18 09/02/18 07:50 16:12 21:40 Troponin I 0.12 H* 5.89 H* 5.88 H* 09/03/18 04:54 Troponin I 3.42 H* [id number] 6.2 Diagnostic Imaging: Exam Date: 09/02/18718 ADM Status: REG ER IMPRESSION: #. Potential bronchopneumonia superimposed on chronic obstructive pulmonary disease. Correlate with clinical assessment. EKG Data: ekg 08/23/2018: NSR, LVH with repolarization changes, grossly unchanged on repeat. No significant changes from 11/29/2016 ekg, Assessment/Plan 1. Acute DE - Peak cTnI < 6 - Single vessel completely occluded small vessel marginal branch not intervened on - LVEF 55% with mid inferolateral wall hypokinesis - Pain free, no arrhythmias, CHF or hemodynamic instability 2. Obesity 3. Very mild aortic stenosis 4. Dyslipidemia 5. NINA on CPAP 6. Pre-diabetes - Continue aspirin 81 mg po daily - Continue clopidogrel 75 mg po daily ideally for a year. Once plavix d/c'd would increase aspirin to 325 mg po daily - Continue atorvastatin 80 mg po daily - Increase toprol from 25 to 50 mg po daily starting tomorrow (ordered) - Continue losartan 25 mg po daily - Needs outpatient Dietitian referral - Ok to transfer to telemetry, if continues to be stable anticipate d/c tomorrow 09/04/2018 Thank you for allowing me to participate in the cardiovascular care of this patient. Please do not hesitate to contact me with questions or concerns.
[2018-09-03] MEDS ORDERED: Metoprolol Succinate XL TAB* 25 MG PO SCH (09:00)
--- NOTE | 2018-09-03 09:05 | PN ---
Subjective Date of Service: 09/03/18 Interval History: Pt is feeling well. She denies any chest pain or SOB. Her R wrist is not painful. Objective Active Medications: Acetaminophen (Tylenol Tab*) 650 mg PO Q4H PRN PRN Reason: FEVER/PAIN Last Admin: 09/03/18 03:21 Dose: 650 mg Aspirin (Aspirin 81 Mg Chew Tab*) 81 mg PO DAILY [facility] Last Admin: 09/03/18 07:28 Dose: 81 mg Atorvastatin Calcium (Lipitor*) 80 mg PO 2100 [facility] Last Admin: 09/02/18 21:28 Dose: 80 mg Clopidogrel Bisulfate (Plavix Tab*) 75 mg PO DAILY [facility] Last Admin: 09/03/18 07:28 Dose: 75 mg Levothyroxine Sodium (Synthroid Tab*) 112 mcg PO 0600 [facility] Last Admin: 09/03/18 06:18 Dose: 112 mcg Losartan Potassium (Cozaar Tab*) 25 mg PO DAILY [facility] Last Admin: 09/03/18 07:28 Dose: 25 mg Metoprolol Succinate (Toprol Xl Tab*) 50 mg PO DAILY [facility] Miconazole Nitrate (Monistat 2%*) 1 applic TOPICAL BID [facility] Last Admin: 09/03/18 07:36 Dose: Not Given Vital Signs - 8 hr 09/03/18 09/03/18 09/03/18 01:00 01:01 02:00 Temperature Pulse Rate 86 83 Respiratory 25 27 28 Rate Blood Pressure 122/52 122/62 (mmHg) O2 Sat by Pulse 93 94 Oximetry 09/03/18 09/03/18 09/03/18 03:00 03:56 04:00 Temperature 97.9 F Pulse Rate 81 Respiratory 25 23 Rate Blood Pressure 127/53 (mmHg) O2 Sat by Pulse 93 Oximetry 09/03/18 09/03/18 09/03/18 04:01 05:00 05:01 Temperature Pulse Rate 79 79 Respiratory 23 21 21 Rate Blood Pressure 123/54 107/57 (mmHg) O2 Sat by Pulse 98 98 Oximetry 09/03/18 09/03/18 09/03/18 06:00 06:01 07:00 Temperature Pulse Rate 72 67 Respiratory 21 21 22 Rate Blood Pressure 99/50 (mmHg) O2 Sat by Pulse 97 98 Oximetry 09/03/18 09/03/18 09/03/18 07:01 07:39 08:00 Temperature 98.4 F Pulse Rate 73 75 Respiratory 22 23 21 Rate Blood Pressure 125/61 (mmHg) O2 Sat by Pulse 97 97 Oximetry Oxygen Devices in Use Now: None Appearance: Elderly obese female sitting up in a chair, eating breakfast, NAD Eyes: No Scleral Icterus Ears/Nose/Mouth/Throat: Mucous Membranes Moist Respiratory: Symmetrical Chest Expansion and Respiratory Effort, Clear to Auscultation Cardiovascular: NL Sounds; No Murmurs; No JVD, RRR Abdominal: NL Sounds; No Tenderness; No Distention Extremities: No Clubbing, Cyanosis Skin: No Nodules or Sclerosis Neurological: Alert and Oriented x 3 Result Diagrams: 09/03/18 04:54 09/03/18 04:54 Microbiology and Other Data: Microbiology 09/02/18 15:56 Nasal Screen MRSA (PCR) - Final Nasal Mrsa Not Detected Assess/Plan/Problems-Billing Ms Sanz is a 68 yo F who has a h/o obesity, NINA, HLD and hypothyroidism who presented to the ER with c/o chest pain and was found to be having a NSTEMI. - Patient Problems (1) NSTEMI (non-ST elevated myocardial infarction) Current Visit: Yes Status: Acute Code(s): I21.4 - NON-ST ELEVATION (NSTEMI) MYOCARDIAL INFARCTION SNOMED Code(s): 45938165 Comment: The patient presented having an NSTEMI. She underwent catheterization and was found to have a totally occluded small vessel marginal branch. No stent placed. She is being medically managed. Continue ASA, plavix, metoprolol XL, losartan and high dose lipitor. Transfer to telemetry and monitor overnight. Plan for d/c home tomorrow. (2) Prediabetes Current Visit: Yes Status: Acute Code(s): R73.03 - PREDIABETES SNOMED Code (s): 079635443 Comment: Pt's HbA1c is elevated at 6.2% indicating pre-diabetes. Will order nutrition consult while in the hospital. We discussed the importance of losing weight. (3) HLD (hyperlipidemia) Current Visit: Yes Status: Acute Code(s): E78.5 - HYPERLIPIDEMIA, UNSPECIFIED SNOMED Code(s): 28177238 Comment: Lipitor 80mg qHS. (4) NINA (obstructive sleep apnea) Current Visit: Yes Status: Acute Code(s): G47.33 - OBSTRUCTIVE SLEEP APNEA ( ADULT) (PEDIATRIC) SNOMED Code(s): 09890101 Comment: Continue CPAP. (5) DVT prophylaxis Current Visit: Yes Status: Acute Code(s): Z29.9 - ENCOUNTER FOR PROPHYLACTIC MEASURES, UNSPECIFIED SNOMED Code(s): 855853380 Comment: SQ heparin (6) Full code status Current Visit: Yes Status: Acute Code(s): Z78.9 - OTHER SPECIFIED HEALTH STATUS SNOMED Code(s): 448431437
--- NOTE | 2018-09-03 16:01 | CATH ---
CC: Dr. White, Dr. Robin * CATH REPORT: DATE OF PROCEDURE: 09/02/18 - ROOM #431 DATE OF DICTATION: 09/03/18 PRIMARY CARE PHYSICIAN: Dr. White. DINKEY LOCOMOTIVE OPERATOR: Dr. Robin. PROCEDURES: Right radial artery access, bilateral selective coronary cineangiography, left heart catheterization, left ventriculography. HISTORY: A 68-year-old woman with troponin positive ACS. PROCEDURE ACCESS: Right radial artery sheath 6F slender. MEDICATIONS: 1. Subcu lidocaine. 2. IV Versed. 3. IV fentanyl. 4. Nitroglycerin 300 mcg. 5. Verapamil 3 mg IA. 6. Heparin 4000 units IV. DIAGNOSTIC CATHETER: 5F TIG4, 5F pigtail. HEMODYNAMICS: LV 120/16, no aortic valve gradient on pullback. ANGIOGRAPHY: Left main: The left main is normal. LAD: The LAD is large, it extends to the apex, it supplies a large and then a smaller diagonal branch, the LAD has no significant stenosis. Circumflex: The circumflex is large, now dominant with a large marginal branch , ends with a small posterolateral. The large marginal branch has a very small side branch seen best in the PELAEZ cranial view, which has TIMI3 flow. It is near occluded in its mid portion, diameters less than a millimeter, it is not suitable for revascularization. This is the presumed culprit. RCA: The RCA is large, dominant with minor luminal irregularity without significant stenosis, it supplies a moderate PDA and smaller posterolateral. Left ventricular angiogram in [place] cranial projection shows very localized area of the mild hypokinesis in the lateral wall consistent with a circumflex distribution. CONCLUSION: 1. Single-vessel branch disease, nonamenable to revascularization. She will be treated medically. 2. Normal LV systolic function with mild regional wall motion abnormality, LVEF 55% to 60%. 3. Successful right radial artery access. [id number]/[facility] #: [id number] [facility]
[2018-09-03] MEDS: Atorvastatin* 80 MG TAB PO SCH (20:24)
[2018-09-03] MEDS: Heparin VIAL(*) 5000 UNITS/ML VIAL (FIVE THOUSAND) SUBCUT SCH (20:26)
[2018-09-04] MEDS: Levothyroxine TAB* 112 MCG TAB PO SCH (06:50)
[2018-09-04] MEDS: Aspirin 81 mg CHEW TAB* 81 MG TAB.CHEW PO SCH (07:53)
[2018-09-04] MEDS: Clopidogrel TAB* 75 MG PO SCH (07:53)
[2018-09-04] MEDS: Losartan TAB* 25 MG PO SCH (07:53)
[2018-09-04] MEDS: Heparin VIAL(*) 5000 UNITS/ML VIAL (FIVE THOUSAND) SUBCUT SCH (07:53)
[2018-09-04] MEDS: Miconazole TOPICAL CREAM 2%* 30 GM TOPICAL SCH (08:03)
--- NOTE | 2018-09-04 08:44 | PN ---
Subjective Date of Service: 09/04/18 Interval History: f/u AMI no cp or dyspnea or lightheadedness no wrist or hand pain tele: sinus rhythm Medications Active Medications: Acetaminophen (Tylenol Tab*) 650 mg PO Q4H PRN PRN Reason: FEVER/PAIN Last Admin: 09/03/18 19:44 Dose: 650 mg Aspirin (Aspirin 81 Mg Chew Tab*) 81 mg PO DAILY [facility] Last Admin: 09/04/18 07:53 Dose: 81 mg Atorvastatin Calcium (Lipitor*) 80 mg PO 2100 [facility] Last Admin: 09/03/18 20:24 Dose: 80 mg Clopidogrel Bisulfate (Plavix Tab*) 75 mg PO DAILY [facility] Last Admin: 09/04/18 07:53 Dose: 75 mg Heparin Sodium (Porcine) (Heparin Vial(*)) 5,000 units SUBCUT Q12HR [facility] Last Admin: 09/04/18 07:53 Dose: 5,000 units Levothyroxine Sodium (Synthroid Tab*) 112 mcg PO 0600 [facility] Last Admin: 09/04/18 06:50 Dose: 112 mcg Losartan Potassium (Cozaar Tab*) 25 mg PO DAILY [facility] Last Admin: 09/04/18 07:53 Dose: 25 mg Metoprolol Succinate (Toprol Xl Tab*) 50 mg PO DAILY [facility] Last Admin: 09/04/18 07:53 Dose: 50 mg Miconazole Nitrate (Monistat 2%*) 1 applic TOPICAL BID [facility] Last Admin: 09/04/18 08:03 Dose: 1 applic Objective Vital Signs: Temp Pulse Resp BP Pulse Ox 97.8 F 82 20 126/63 97 09/04/18 07:26 09/04/18 07:26 09/04/18 07:26 09/04/18 07:26 09/04/18 07:26 Oxygen Devices in Use Now: None Appearance: nad, pleasant Ears/Nose/Mouth/Throat: Clear Oropharnyx, Mucous Membranes Moist Neck: NL Appearance and Movements; NL JVP, Trachea Midline Respiratory: Symmetrical Chest Expansion and Respiratory Effort, Clear to Auscultation Cardiovascular: RRR, - - 2/6 systolic murmur, distant heart sounds Abdominal: NL Sounds; No Tenderness; No Distention Extremities: No Edema, No Clubbing, Cyanosis, - - wrist puncture site intact, hand warm and well perfused, brisk capillary refill, pulse felt distal to puncture site, no swelling Skin: No Rash or Ulcers Neurological: Alert and Oriented x 3 Laboratory Results: 09/03/18 04:54 09/03/18 04:54 INR (Anticoag Therapy) 0.96 (0.82-1.09) 09/02/18 07:50 APTT 28.7 seconds (26.0-36.3) 09/02/18 07:50 Total Bilirubin 0.50 mg/dL (0.2-1.0) 09/02/18 07:50 AST 22 U/L (13-39) 09/02/18 07:50 ALT 15 U/L (7-52) 09/02/18 07:50 Alkaline Phosphatase 82 U/L (34-104) 09/02/18 07:50 B-Natriuretic Peptide 135 pg/mL (<=100) H 09/02/18 07:50 Total Protein 8.0 g/dL (6.4-8.9) 09/02/18 07:50 Albumin 4.0 g/dL (3.2-5.2) 09/02/18 07:50 Globulin 4.0 g/dL (2-4) 09/02/18 07:50 Albumin/Globulin Ratio 1.0 (1-3) 09/02/18 07:50 Triglycerides 119 mg/dL 09/03/18 04:54 Cholesterol 163 mg/dL 09/03/18 04:54 LDL Cholesterol 91 mg/dL 09/03/18 04:54 HDL Cholesterol 48.7 mg/dL 09/03/18 04:54 09/02/18 09/02/18 09/02/18 07:50 16:12 21:40 Troponin I 0.12 H* 5.89 H* 5.88 H* 09/03/18 04:54 Troponin I 3.42 H* Diagnostic Imaging: Exam Date: 09/02/18718 ADM Status: REG ER IMPRESSION: #. Potential bronchopneumonia superimposed on chronic obstructive pulmonary disease. Correlate with clinical assessment. Cardiac Catheterization Report Dr. Groves 09/02/18 DATE OF PROCEDURE: HISTORY: A 68-year-old woman with troponin positive ACS. PROCEDURE ACCESS: Right radial artery sheath HEMODYNAMICS: LV 120/16, no aortic valve gradient on pullback. ANGIOGRAPHY: Left main: The left main is normal. LAD: The LAD is large, it extends to the apex, it supplies a large and then a smaller diagonal branch, the LAD has no significant stenosis. Circumflex: The circumflex is large, now dominant with a large marginal branch , ends with a small posterolateral. The large marginal branch has a very small side branch seen best in the PELAEZ cranial view, which has TIMI3 flow. It is near occluded in its mid portion, diameters less than a millimeter, it is not suitable for revascularization. This is the presumed culprit. RCA: The RCA is large, dominant with minor luminal irregularity without significant stenosis, it supplies a moderate PDA and smaller posterolateral. Left ventricular angiogram in [place] cranial projection shows very localized area of the mild hypokinesis in the lateral wall consistent with a circumflex distribution. CONCLUSION: 1. Single-vessel branch disease, nonamenable to revascularization. She will be treated medically. 2. Normal LV systolic function with mild regional wall motion abnormality, LVEF 55% to 60%. EKG Data: ekg 08/23/2018: NSR, LVH with repolarization changes, grossly unchanged on repeat. No significant changes from 11/29/2016 ekg, Assessment/Plan 1. Acute CA - Peak cTnI < 6 - Single vessel completely occluded small vessel marginal branch not intervened on - LVEF 55% with mid inferolateral wall hypokinesis - Pain free, no arrhythmias, CHF or hemodynamic instability 2. Obesity 3. Very mild aortic stenosis 4. Dyslipidemia 5. NINA on CPAP 6. Pre-diabetes - Continue aspirin 81 mg po daily - Continue clopidogrel 75 mg po daily ideally for a year. Once plavix d/c'd would increase aspirin to 325 mg po daily - Continue atorvastatin 80 mg po daily - Continue toprol 50 mg po daily - Continue losartan 25 mg po daily - Outpatient Dietitian and cardiac rehab referrals - Stable for discharge form a cardiac standpoint, will arrange cardiology follow up Thank you for allowing me to participate in the cardiovascular care of this patient. Please do not hesitate to contact me with questions or concerns.
[2018-09-04] MEDS ORDERED: Metoprolol Succinate XL TAB* 50 MG PO SCH (09:00)
[2018-09-04] MEDS ORDERED: Heparin VIAL(*) 5000 UNITS/ML VIAL (FIVE THOUSAND) SUBCUT SCH (11:00)
[2018-09-04 12:09] VITALS: BP 122/66
--- NOTE | 2018-09-04 13:31 | DS ---
CC: Dr. Wanda Noe; Dr. Wilman Reynolds; Dr. Robbie Robin; Dr. Sandra White DISCHARGE SUMMARY: DATE OF ADMISSION: 09/02/18 DATE OF DISCHARGE: 09/04/18 DISCHARGE CONDITION: Stable. DISCHARGE DISPOSITION: Home. DISCHARGE DIAGNOSES: As follows: 1. Pmt-VR-nocnyrsrh myocardial infarction, near total occlusion of side branch of marginal branch of circumflex; not suitable for stents/revascularization. 2. Prediabetes. 3. Obesity. 4. Hyperlipidemia, history of. DISCHARGE MEDICATIONS: As follows: 1. Atorvastatin 80 mg p.o. daily. 2. Clopidogrel 75 mg p.o. daily. 3. Levothyroxine 112 mcg p.o. daily. 4. Losartan 25 mg p.o. daily. 5. Metoprolol 50 mg p.o. daily. 6. Miconazole topical 2% cream 1 application topically b.i.d. for 14 days. 7. Aspirin 81 mg p.o. daily. HISTORY OF PRESENT ILLNESS/HOSPITAL COURSE: The patient is a 68-year-old lady with history significant for obesity; NINA, on CPAP; dyslipidemia; and hypothyroidism as well as cardiac murmur, w ho presented to the emergency department with complaints of chest pain and was subsequently found to have mildly elevated troponin that was consistent with NSTEMI. Her troponin peaked at 5.89 and has t rended down prior to her discharge. She underwent a transthoracic echocardiogram on 09/02/18, which revealed EF of 55% to 60% with mid inferolateral wall into the apical territory that appeared hypokin etic. Her right ventricular systolic function was found to be normal. Left atrium was found to be o f normal size and aortic valve was consistent with mild aortic stenosis with normal estimated PASP. S he also underwent catheterization by Dr. Groves, who then subsequently found the patient to have a ne ar total occlusion of the side branch of the marginal branch of circumflex which was thought not to b e suitable for stent. The rest of the findings of the catheterization were otherwise unremarkable. The patient has been placed on an angiotensin receptor dayanara and Plavix and her statin was maximize d, given her LDL was not found to be at goal. Aspirin and dual antiplatelet therapy was prescribed p rior to her discharge. She was advised to follow up and/or call her PCP within 3 days post discharge. She was advised to to [place] with Dr. Robin's office and to make sure to follow up with him within 1 week post discharge . She was provided with Dr. Robin's office number to make/confirm her appointment so that she does not get lost to followup. She was advised to touch [facility] with her PCP to determine the best way she ca n safely lose weight. Museum Assistant consult has been ordered for her as an outpatient as well as card [facility]. She was informed that this will improve her cardiovascular outlook along with her hyperli pidemia, insulin resistance, and obstructive sleep apnea. She was advised that if her symptoms resum e or develop new ones or feel unwell for any reason, to call her PCP first. If she is unable to touc [facility] with her PCP, she was advised to call [facility] if the issue is nonemergent. For any recurrence or lingering chest pain, she was advised to go back to the ER for reevaluation. She was advised to call my office regarding any questions, concerns, or further clarifications regarding her discharge plans and/or prescriptions and she was advised to take her medications as prescribed. REVIEW OF SYSTEMS: The patient currently denied any headaches, dizziness, fevers, chills, nausea, vo miting, chest pain, shortness of breath, increased coughing and/or sputum production, abdominal pain, diarrhea, constipation, pain and/or increased frequency on urination, myalgias, arthralgias, throat pain, or new skin lesions. The rest of the 14-point review of systems is otherwise unremarkable. PHYSICAL EXAMINATION: Shows the most recent vital signs of record with blood pressure of 126/63, 97. 8 degrees Fahrenheit, 82 beats per minute heart rate, 20 per minute respiratory rate, saturating at 9 7% on room air. General Appearance: The patient is awake, alert, and oriented x3, not in acute dist ress, obese. HEENT: Normocephalic, atraumatic. PERRLA. Extraocular muscles intact. Negative for i cterus. Moist oral mucosa. Negative throat erythema. Neck is soft, supple with no cervical lymphad enopathy, no JVD. Heart: S1, S2 within normal limits. Regular rate and rhythm. No murmurs, rubs, or gallops. Chest: Clear to auscultation bilaterally. Good air entry. No wheezes, rales, or rhonc hi. Abdomen is soft, nondistended, nontender. Normoactive bowel sounds x4 quadrants. Extremities: No cyanosis, clubbing, or edema. Psychiatric: No active psychosis, depression, suicidal or homicid al ideation. Skin is warm to touch. TIME SPENT: The total time spent evaluating the patient, reviewing pertinent data and appropriate do cumentation is 50 minutes. [id number]/[id number] #: [id number]
== END 2018-09-04 13:45 | disposition home or self-care (01) | DRG 190 ==
LOC: ED 06:59 → ICU 13:29 → MEDTELE 09-03 17:16
PROVIDERS: ADMIT Internal Medicine; ATTEND Student in an Organized Health Care Education/Training Program
PROC: 4A023N7 Measurement of Cardiac Sampling and Pressure, Left Heart, Percutaneous Approach (ICD-10-PCS; 2018-09-02)
PROC: B2151ZZ Fluoroscopy of Left Heart using Low Osmolar Contrast (ICD-10-PCS; 2018-09-02)
PROC: B2111ZZ Fluoroscopy of Multiple Coronary Arteries using Low Osmolar Contrast (ICD-10-PCS; principal; 2018-09-02 13:45)
DX: I21.4 Non-ST elevation (NSTEMI) myocardial infarction (principal); Z68.42 Body mass index [BMI] 45.0-49.9, adult; E78.5 Hyperlipidemia, unspecified; E78.00 Pure hypercholesterolemia, unspecified; E66.9 Obesity, unspecified; G47.33 Obstructive sleep apnea (adult) (pediatric); E03.9 Hypothyroidism, unspecified; B35.8 Other dermatophytoses; I35.0 Nonrheumatic aortic (valve) stenosis; I25.10 Atherosclerotic heart disease of native coronary artery without angina pectoris; E88.81 Metabolic syndrome and other insulin resistance; I49.3 Ventricular premature depolarization; Z79.82 Long term (current) use of aspirin; Z82.49 Family history of ischemic heart disease and other diseases of the circulatory system; Z72.89 Other problems related to lifestyle; Z87.891 Personal history of nicotine dependence; Z79.02 Long term (current) use of antithrombotics/antiplatelets
CPT/HCPCS: 36415; 71045; 80048; 80053; 80061; 83036; 83880; 84484; 85025; 85027; 85347; 85610; 85730; 87641; 93005; 93306; 93458; 94660; 99285; A9270-GY; C8929; J1644; J2250; J3010; J3490

== ENCOUNTER 2021-06-13 21:55 | Inpatient (IN) ==
[2021-06-13] MEDS ORDERED: Lactated Ringers 1000 ml BAG 1,000 ML IV ONE (22:32)
[2021-06-13 23:19] LABS: ABS Basophils 0.1 10^3/ul (0-0.2); ABS Lymphocytes 0.6 10^3/ul (1.0-4.8); ABS Monocytes 0.6 10^3/ul (0-0.8); ABS Neutrophils 11.8 10^3/ul (1.5-7.7); Eosinophil % 0.1 %; Hematocrit 38 % (35-47); Hemoglobin 12.8 g/dL (12.0-16.0); Lymphocyte % 4.9 %; Mean Corpuscular HGB Conc 34 g/dL (31-36); Mean Corpuscular Hemoglobin 33 pg (27-31); Mean Corpuscular Volume 97 fL (80-97); Mean Platelet Volume 10.3 fL (7.4-10.4); Nucleated Red Blood Cells % 0.2; Platelet Count 199 10^3/uL (150-450); Red Cell Distribution Width 14 % (10-15); White Blood Count 13.1 10^3/uL (3.5-10.8)
[2021-06-13 23:23] LABS: INR 1.17 (0.86-1.15)
[2021-06-13 23:45] LABS: ALT 98 U/L (7-52); AST 38 U/L (13-39); Albumin 3.8 g/dL (3.2-5.2); Albumin/Globulin Ratio 1.5 (1-3); Alkaline Phosphatase 90 U/L (35-149); Anion Gap 11 mmol/L (2-11); Blood Urea Nitrogen 35 mg/dL (6-24); C Reactive Protein 1.05 mg/L (<8.01); CO2 Carbon Dioxide 31 mmol/L (22-32); Calcium 8.7 mg/dL (8.6-10.3); Chloride 91 mmol/L (101-111); Globulin 2.6 g/dL (2-4); Glucose 321 mg/dL (70-100); Magnesium 2.3 mg/dL (1.9-2.7); Potassium 3.7 mmol/L (3.5-5.0); Sodium 133 mmol/L (135-145); Total Protein 6.4 g/dL (6.4-8.9); eGFR CKD-EPI 37.8 (>60)
[2021-06-13 23:52] LABS: Troponin I 0.05 ng/mL (<0.03)
[2021-06-13 23:59] LABS: TSH Ultra Thyroid Stim Horm 2.13 mcIU/mL (0.34-5.60)
[2021-06-14] MEDS ORDERED: methylPREDNISolone 125 mg 2 ML VIAL IV ONE (00:02)
[2021-06-14] MEDS ORDERED: Metoprolol Tartrate 5 mg VIAL 5 ml VIAL (1 mg/ml) IV ONE (00:23)
[2021-06-14 00:27] LABS: Rapid COVID-19 Molecular Undetected (Undetected)
[2021-06-14 00:33] LABS: Urine Appearance Clear; Urine Bilirubin Negative (Negative); Urine Blood 1+ (Negative); Urine Color Yellow; Urine Glucose 3+(>=500 mg/dL) (Negative); Urine Ketones Negative (Negative); Urine Nitrite Negative (Negative); Urine Protein 1+(30 mg/dL) (Negative); Urine Specific Gravity 1.009 (1.002-1.030); Urine Urobilinogen Negative (Negative)
[2021-06-14] MEDS ORDERED: Propofol 10 MG/ML 20 ML BTL IV PUSH ONE (00:40)
[2021-06-14 00:43] LABS: Urine Bacteria Absent (Absent); Urine Granular Casts Present (Absent); Urine Red Blood Cell Trace(0-2/hpf) (Absent); Urine White Blood Cell Trace(0-5/hpf) (Absent)
[2021-06-14] MEDS ORDERED: NS 0.9% 1000 ml BAG 1,000 ML IV.FLUID IV ONE (01:05)
[2021-06-14] MEDS ORDERED: NS 0.9% 1000 ml BAG 1,000 ML IV ONE (01:18)
[2021-06-14] MEDS: Benzocaine/Menthol LOZ PO PRN ×2 (04:45→10:13)
[2021-06-14] MEDS ORDERED: NFT: Dulaglutide (NF) 1.5 MG/0.5 ML SYRINGE SUBCUT SCH (05:00)
[2021-06-14 06:50] LABS: ABS Lymphocytes 0.4 10^3/ul (1.0-4.8); ABS Monocytes 0.2 10^3/ul (0-0.8); ABS Neutrophils 10.4 10^3/ul (1.5-7.7); Eosinophil % 0.1 %; Hematocrit 34 % (35-47); Hemoglobin 11.5 g/dL (12.0-16.0); Lymphocyte % 3.5 %; Mean Corpuscular HGB Conc 34 g/dL (31-36); Mean Corpuscular Hemoglobin 33 pg (27-31); Mean Corpuscular Volume 99 fL (80-97); Mean Platelet Volume 10.3 fL (7.4-10.4); Platelet Count 163 10^3/uL (150-450); Red Blood Count 3.48 10^6 /uL (3.70-4.87); Red Cell Distribution Width 14 % (10-15)
[2021-06-14 07:05] LABS: Calcium 7.9 mg/dL (8.6-10.3); Magnesium 2.1 mg/dL (1.9-2.7); Potassium 3.6 mmol/L (3.5-5.0); eGFR CKD-EPI 51.9 (>60)
[2021-06-14 07:23] LABS: Troponin I 0.05 ng/mL (<0.03)
[2021-06-14] MEDS: Nystatin SUSPENSION 100,000 UNITS/ML UDC PO SCH ×4 (09:24→22:18)
[2021-06-14] MEDS: Cholecalciferol (VIT D3) 1,000 unit TAB PO SCH (09:25)
[2021-06-14] MEDS ORDERED: Sulfamethox/Trimethoprim DS TAB 800/160 mg PO ONE (10:27)
[2021-06-14] MEDS ORDERED: Dextrose 50% Syringe 50 ml 25 GM/50 ML SYRINGE IV PUSH PRN (11:35)
[2021-06-14] MEDS: Tiotropium Brom/Olodaterol MDI INH SCH (12:41)
[2021-06-14 17:16] LABS: Glucose Confirmatory 423 mg/dL (70-100)
[2021-06-14] MEDS ORDERED: Sulfamethox/Trimethoprim DS TAB 800/160 mg PO SCH (19:00)
[2021-06-14] MEDS: Morphine ORAL.SOLN 10 mg 2 mg/ml UDC 5 ml (10 mg) PO PRN (22:50)
[2021-06-14] MEDS: Insulin GLARGINE 100 un/ml 10 ml VIAL SUBCUT SCH (22:54)
[2021-06-15 06:06] LABS: Hematocrit 32 % (35-47); Hemoglobin 11.1 g/dL (12.0-16.0); Mean Corpuscular HGB Conc 34 g/dL (31-36); Mean Corpuscular Hemoglobin 34 pg (27-31); Mean Corpuscular Volume 99 fL (80-97); Mean Platelet Volume 10.6 fL (7.4-10.4); Platelet Count 157 10^3/uL (150-450); Red Blood Count 3.25 10^6 /uL (3.70-4.87); Red Cell Distribution Width 14 % (10-15)
[2021-06-15 06:28] LABS: Calcium 8.1 mg/dL (8.6-10.3); Magnesium 2.4 mg/dL (1.9-2.7); eGFR CKD-EPI 60.2 (>60)
[2021-06-15 06:59] LABS: Potassium 4.1 mmol/L (3.5-5.0)
[2021-06-15] MEDS: Tiotropium Brom/Olodaterol MDI INH SCH (08:43)
[2021-06-15] MEDS: Cholecalciferol (VIT D3) 1,000 unit TAB PO SCH (09:55)
[2021-06-15] MEDS: Nystatin SUSPENSION 100,000 UNITS/ML UDC PO SCH ×4 (09:57→20:42)
[2021-06-15] MEDS: cefTRIAXone 1 gm/50 mL NS BAG 1 GM/50 ML BAG IVPB SCH (12:07)
[2021-06-15] MEDS: Morphine ORAL.SOLN 10 mg 2 mg/ml UDC 5 ml (10 mg) PO PRN ×2 (13:59→21:57)
[2021-06-15] MEDS: Metoprolol Tartrate 5 mg VIAL 5 ml VIAL (1 mg/ml) IV PRN ×2 (14:08→14:38)
[2021-06-15] MEDS ORDERED: NS 0.9% 500 ml BAG 500 ML IV ONE ×3 (14:18→14:50)
[2021-06-15] MEDS ORDERED: Diltiazem IV push/loading dose 5 MG/ML 5 ML vial (25 mg) IV SLOW PU ONE ×2 (14:18→14:45)
[2021-06-15] MEDS ORDERED: Digoxin IV 0.5 MG/2 ML AMP (0.25 MG/ML) IV SLOW PU ONE ×2 (14:24→14:36)
[2021-06-15] MEDS ORDERED: Digoxin IV 0.5 MG/2 ML AMP (0.25 MG/ML) ONE ×2 (14:26→14:34)
[2021-06-15] MEDS ORDERED: Diltiazem IV push/loading dose 5 MG/ML 5 ML vial (25 mg) ONE (14:42)
[2021-06-15] MEDS ORDERED: [UNRECOGNIZED DRUG - OTHER] IV ONE (14:54)
[2021-06-15] MEDS ORDERED: Diltiazem IV BAG D5W Premix 125 MG/125 ML BAG IV SCH (15:00)
[2021-06-15] MEDS ORDERED: Amiodarone 150 mg IVPREMIX 150 MG/100 ML BAG IV ONE ×2 (15:57)
[2021-06-15] MEDS ORDERED: .Amiodarone 24HR ONLY IV Protocol Order Note IV ONE (15:57)
[2021-06-15] MEDS ORDERED: Amiodarone 360 MG IVPREMIX 360 MG/200 ML BAG IV SCH (16:10)
[2021-06-15 20:23] LABS: Glucose Confirmatory 407 mg/dL (70-100)
[2021-06-15] MEDS: Insulin GLARGINE 100 un/ml 10 ml VIAL SUBCUT SCH (20:42)
[2021-06-15] MEDS: Amiodarone 360 MG IVPREMIX 360 MG/200 ML BAG IV SCH (22:30)
[2021-06-16 05:46] LABS: Hematocrit 30 % (35-47); Hemoglobin 10.1 g/dL (12.0-16.0); Mean Corpuscular HGB Conc 34 g/dL (31-36); Mean Corpuscular Hemoglobin 34 pg (27-31); Mean Corpuscular Volume 100 fL (80-97); Mean Platelet Volume 10.1 fL (7.4-10.4); Platelet Count 145 10^3/uL (150-450); Red Blood Count 2.99 10^6 /uL (3.70-4.87); Red Cell Distribution Width 14 % (10-15); White Blood Count 9.3 10^3/uL (3.5-10.8)
[2021-06-16 05:47] LABS: Blood Urea Nitrogen 27 mg/dL (6-24); CO2 Carbon Dioxide 25 mmol/L (22-32); Calcium 7.8 mg/dL (8.6-10.3); Chloride 105 mmol/L (101-111); Glucose 353 mg/dL (70-100); Magnesium 2.2 mg/dL (1.9-2.7); Sodium 137 mmol/L (135-145); eGFR CKD-EPI 75.5 (>60)
[2021-06-16 06:01] LABS: Anion Gap 7 mmol/L (2-11); Potassium 4.2 mmol/L (3.5-5.0)
[2021-06-16] MEDS ORDERED: Calcium Gluconate 2 GM in NS 0.9% 100 ml BAG 100 ML IV ONE (07:55)
[2021-06-16] MEDS: Tiotropium Brom/Olodaterol MDI INH SCH (08:07)
[2021-06-16 08:08] LABS: Troponin I 0.07 ng/mL (<0.03)
[2021-06-16] MEDS: Cholecalciferol (VIT D3) 1,000 unit TAB PO SCH (08:18)
[2021-06-16] MEDS: Nystatin SUSPENSION 100,000 UNITS/ML UDC PO SCH ×4 (08:18→20:47)
[2021-06-16] MEDS: Amiodarone 360 MG IVPREMIX 360 MG/200 ML BAG IV SCH (10:48)
[2021-06-16] MEDS: cefTRIAXone 1 gm/50 mL NS BAG 1 GM/50 ML BAG IVPB SCH (12:05)
[2021-06-16 13:34] LABS: Troponin I 0.04 ng/mL (<0.03)
[2021-06-16] MEDS: Insulin GLARGINE 100 un/ml 10 ml VIAL SUBCUT SCH (20:47)
[2021-06-17] MEDS: Morphine ORAL.SOLN 10 mg 2 mg/ml UDC 5 ml (10 mg) PO PRN ×2 (06:49→21:05)
[2021-06-17] MEDS: Tiotropium Brom/Olodaterol MDI INH SCH (08:11)
[2021-06-17] MEDS: Nystatin SUSPENSION 100,000 UNITS/ML UDC PO SCH ×4 (08:27→21:07)
[2021-06-17] MEDS: Cholecalciferol (VIT D3) 1,000 unit TAB PO SCH (08:27)
[2021-06-17] MEDS ORDERED: Perflutren Lipid Microsphere 3 ML VIAL ONE (09:00)
[2021-06-17 09:28] LABS: Hematocrit 33 % (35-47); Hemoglobin 11.1 g/dL (12.0-16.0); Mean Corpuscular HGB Conc 33 g/dL (31-36); Mean Corpuscular Hemoglobin 34 pg (27-31); Mean Corpuscular Volume 101 fL (80-97); Mean Platelet Volume 10.2 fL (7.4-10.4); Platelet Count 166 10^3/uL (150-450); Red Blood Count 3.31 10^6 /uL (3.70-4.87); Red Cell Distribution Width 15 % (10-15); White Blood Count 10.6 10^3/uL (3.5-10.8)
[2021-06-17 09:45] LABS: Albumin 3.3 g/dL (3.2-5.2); Albumin/Globulin Ratio 1.5 (1-3); Calcium 8.7 mg/dL (8.6-10.3); Globulin 2.2 g/dL (2-4); Magnesium 2.2 mg/dL (1.9-2.7); Potassium 4.6 mmol/L (3.5-5.0); Total Bilirubin 0.6 mg/dL (0.2-1.0); Total Protein 5.5 g/dL (6.4-8.9); eGFR CKD-EPI 67.5 (>60)
[2021-06-17 10:58] LABS: ABS Lymphocytes 0.6 10^3/ul (1.0-4.8); ABS Monocytes 0.3 10^3/ul (0-0.8); ABS Neutrophils 9.6 10^3/ul (1.5-7.7); Eosinophil % 0.2 %; Lymphocyte % 6.1 %; Nucleated Red Blood Cells % 0.2
[2021-06-17] MEDS: cefTRIAXone 1 gm/50 mL NS BAG 1 GM/50 ML BAG IVPB SCH (11:27)
[2021-06-17] MEDS: Sulfamethox/Trimethoprim DS TAB 800/160 mg PO SCH (11:28)
[2021-06-17] MEDS: Levalbuterol HFA INHALER MDI INH PRN ×2 (17:05→23:01)
[2021-06-17] MEDS: Insulin GLARGINE 100 un/ml 10 ml VIAL SUBCUT SCH (21:06)
[2021-06-18] MEDS: Levalbuterol HFA INHALER MDI INH PRN (06:31)
[2021-06-18] MEDS: Cholecalciferol (VIT D3) 1,000 unit TAB PO SCH (08:25)
[2021-06-18] MEDS: Nystatin SUSPENSION 100,000 UNITS/ML UDC PO SCH ×4 (08:30→21:11)
[2021-06-18] MEDS: Tiotropium Brom/Olodaterol MDI INH SCH (08:53)
[2021-06-18] MEDS: cefTRIAXone 1 gm/50 mL NS BAG 1 GM/50 ML BAG IVPB SCH (11:19)
[2021-06-18] MEDS: Levalbuterol HFA INHALER MDI INH SCH ×2 (13:03→19:00)
[2021-06-18] MEDS: Insulin GLARGINE 100 un/ml 10 ml VIAL SUBCUT SCH (20:39)
[2021-06-19] MEDS: Levalbuterol HFA INHALER MDI INH SCH ×4 (00:56→19:27)
[2021-06-19] MEDS: Benzocaine/Menthol LOZ PO PRN ×3 (05:27→20:58)
[2021-06-19 05:29] LABS: Hematocrit 32 % (35-47); Hemoglobin 10.7 g/dL (12.0-16.0); Mean Corpuscular HGB Conc 34 g/dL (31-36); Mean Corpuscular Hemoglobin 34 pg (27-31); Mean Corpuscular Volume 101 fL (80-97); Mean Platelet Volume 9.8 fL (7.4-10.4); Platelet Count 175 10^3/uL (150-450); Red Blood Count 3.16 10^6 /uL (3.70-4.87); Red Cell Distribution Width 15 % (10-15); White Blood Count 9.6 10^3/uL (3.5-10.8)
[2021-06-19 05:44] LABS: Calcium 9.3 mg/dL (8.6-10.3); Potassium 4.9 mmol/L (3.5-5.0)
[2021-06-19 05:50] LABS: eGFR CKD-EPI 75.5 (>60)
[2021-06-19 07:38] LABS: ABS Lymphocytes 0.7 10^3/ul (1.0-4.8); ABS Monocytes 0.4 10^3/ul (0-0.8); ABS Neutrophils 8.5 10^3/ul (1.5-7.7); Eosinophil % 0.2 %; Lymphocyte % 6.9 %; Nucleated Red Blood Cells % 0.5
[2021-06-19] MEDS: Tiotropium Brom/Olodaterol MDI INH SCH (08:10)
[2021-06-19] MEDS: Nystatin SUSPENSION 100,000 UNITS/ML UDC PO SCH ×4 (09:53→20:57)
[2021-06-19] MEDS: Sulfamethox/Trimethoprim DS TAB 800/160 mg PO SCH (09:53)
[2021-06-19] MEDS: Cholecalciferol (VIT D3) 1,000 unit TAB PO SCH (09:54)
[2021-06-19] MEDS ORDERED: Furosemide 20 mg/2 ml IV VIAL IV ONE (11:29)
[2021-06-19] MEDS: cefTRIAXone 1 gm/50 mL NS BAG 1 GM/50 ML BAG IVPB SCH (11:30)
[2021-06-19] MEDS ORDERED: Digoxin IV 0.5 MG/2 ML AMP (0.25 MG/ML) IV SLOW PU ONE ×2 (16:09→23:59)
[2021-06-19 16:41] LABS: Folate 14.77 ng/mL (5.90-24.80)
[2021-06-19 17:54] LABS: Magnesium 2.2 mg/dL (1.9-2.7)
[2021-06-19 19:20] LABS: Troponin I 0.04 ng/mL (<0.03)
[2021-06-19] MEDS: Insulin GLARGINE 100 un/ml 10 ml VIAL SUBCUT SCH (20:57)
[2021-06-19 22:11] LABS: Troponin I 0.12 ng/mL (<0.03)
[2021-06-20] MEDS: Levalbuterol HFA INHALER MDI INH SCH ×3 (01:15→19:40)
[2021-06-20 01:46] LABS: Troponin I 0.24 ng/mL (<0.03)
[2021-06-20 03:43] LABS: Calcium 9.1 mg/dL (8.6-10.3); Magnesium 2.2 mg/dL (1.9-2.7); eGFR CKD-EPI 47.3 (>60)
[2021-06-20 04:00] LABS: Troponin I 0.23 ng/mL (<0.03)
[2021-06-20] MEDS: Tiotropium Brom/Olodaterol MDI INH SCH (07:32)
[2021-06-20] MEDS: Cholecalciferol (VIT D3) 1,000 unit TAB PO SCH (08:16)
[2021-06-20] MEDS: Nystatin SUSPENSION 100,000 UNITS/ML UDC PO SCH ×2 (08:17→12:29)
[2021-06-20] MEDS: cefTRIAXone 1 gm/50 mL NS BAG 1 GM/50 ML BAG IVPB SCH (11:56)
[2021-06-20] MEDS ORDERED: Insulin GLARGINE 100 un/ml 10 ml VIAL SUBCUT SCH (21:00)
[2021-06-20] MEDS: Insulin GLARGINE 100 un/ml 10 ml VIAL SUBCUT SCH (21:10)
[2021-06-20] MEDS: Benzocaine/Menthol LOZ PO PRN (22:21)
[2021-06-21 05:54] LABS: Hematocrit 37 % (35-47); Hemoglobin 12.7 g/dL (12.0-16.0); Mean Corpuscular HGB Conc 34 g/dL (31-36); Mean Corpuscular Hemoglobin 34 pg (27-31); Mean Corpuscular Volume 99 fL (80-97); Mean Platelet Volume 10.3 fL (7.4-10.4); Platelet Count 194 10^3/uL (150-450); Red Blood Count 3.77 10^6 /uL (3.70-4.87); Red Cell Distribution Width 14 % (10-15)
[2021-06-21 06:19] LABS: Calcium 8.5 mg/dL (8.6-10.3); Potassium 3.8 mmol/L (3.5-5.0); eGFR CKD-EPI 47.8 (>60)
[2021-06-21] MEDS: Tiotropium Brom/Olodaterol MDI INH SCH (07:55)
[2021-06-21] MEDS: Levalbuterol HFA INHALER MDI INH SCH ×2 (07:56→19:59)
[2021-06-21] MEDS: Cholecalciferol (VIT D3) 1,000 unit TAB PO SCH (08:39)
[2021-06-21 09:35] LABS: ABS Eosinophils 0.1 10^3/ul (0-0.6); ABS Lymphocytes 1.2 10^3/ul (1.0-4.8); ABS Monocytes 0.7 10^3/ul (0-0.8); ABS Neutrophils 8.1 10^3/ul (1.5-7.7); ABS Nucleated RBC 0.1 10^3/ul; Eosinophil % 0.7 %; Lymphocyte % 12.1 %; Nucleated Red Blood Cells % 0.4
[2021-06-21 09:37] LABS: RBC Morphology Normal (Normal)
[2021-06-21] MEDS: Sulfamethox/Trimethoprim DS TAB 800/160 mg PO SCH (16:04)
[2021-06-21] MEDS: Benzocaine/Menthol LOZ PO PRN (20:56)
[2021-06-21] MEDS: Insulin GLARGINE 100 un/ml 10 ml VIAL SUBCUT SCH (21:16)
[2021-06-21 23:04] LABS: Albumin 2.6 g/dL (3.4-4.7); Albumin/Globulin Ratio 0.97; Gamma Globulin 0.5 g/dL (0.6-1.6); Total Protein(PEP) 5.3 g/dL (6.3 - 7.9)
[2021-06-22 06:25] LABS: Hematocrit 37 % (35-47); Hemoglobin 12.6 g/dL (12.0-16.0); Mean Corpuscular HGB Conc 34 g/dL (31-36); Mean Corpuscular Hemoglobin 34 pg (27-31); Mean Corpuscular Volume 98 fL (80-97); Mean Platelet Volume 9.8 fL (7.4-10.4); Platelet Count 185 10^3/uL (150-450); Red Blood Count 3.76 10^6 /uL (3.70-4.87); Red Cell Distribution Width 15 % (10-15); White Blood Count 9.6 10^3/uL (3.5-10.8)
[2021-06-22 06:33] LABS: ABS Monocytes 0.6 10^3/ul (0-0.8); Eosinophil % 0.5 %; Lymphocyte % 10.2 %; Nucleated Red Blood Cells % 0.2
[2021-06-22 06:44] LABS: Calcium 8.4 mg/dL (8.6-10.3); Potassium 3.5 mmol/L (3.5-5.0); eGFR CKD-EPI 50.8 (>60)
[2021-06-22] MEDS: Levalbuterol HFA INHALER MDI INH SCH ×2 (07:30→19:23)
[2021-06-22] MEDS: Tiotropium Brom/Olodaterol MDI INH SCH (07:32)
[2021-06-22] MEDS: Cholecalciferol (VIT D3) 1,000 unit TAB PO SCH (09:46)
[2021-06-22] MEDS: Benzocaine/Menthol LOZ PO PRN ×3 (09:49→22:32)
[2021-06-22] MEDS: Nystatin TOP POWDER 15 GM BTL TOPICAL SCH (22:32)
[2021-06-22] MEDS: Insulin GLARGINE 100 un/ml 10 ml VIAL SUBCUT SCH (22:32)
[2021-06-23] MEDS: Benzocaine/Menthol LOZ PO PRN ×2 (05:48→20:35)
[2021-06-23] MEDS: Tiotropium Brom/Olodaterol MDI INH SCH (07:33)
[2021-06-23] MEDS: Levalbuterol HFA INHALER MDI INH SCH ×2 (07:36→19:34)
[2021-06-23 07:49] LABS: Calcium 8.2 mg/dL (8.6-10.3); Magnesium 2.3 mg/dL (1.9-2.7); Potassium 3.6 mmol/L (3.5-5.0); eGFR CKD-EPI 51.9 (>60)
[2021-06-23] MEDS: Cholecalciferol (VIT D3) 1,000 unit TAB PO SCH (08:54)
[2021-06-23] MEDS: Polyethylene Glycol 3350 17 GM PACKET PO SCH (12:19)
[2021-06-23] MEDS: Nystatin TOP POWDER 15 GM BTL TOPICAL SCH ×2 (12:19→20:36)
[2021-06-23] MEDS: Insulin GLARGINE 100 un/ml 10 ml VIAL SUBCUT SCH (20:36)
[2021-06-24] MEDS ORDERED: Lactated Ringers 1000 ml BAG 500 ML IV SCH (01:00)
[2021-06-24 06:24] LABS: Calcium 8.2 mg/dL (8.6-10.3); Potassium 3.9 mmol/L (3.5-5.0); eGFR CKD-EPI 61.7 (>60)
[2021-06-24] MEDS: Levalbuterol HFA INHALER MDI INH SCH ×2 (07:40→19:24)
[2021-06-24] MEDS: Tiotropium Brom/Olodaterol MDI INH SCH (07:43)
[2021-06-24] MEDS ORDERED: Magnesium Hydroxide LIQ 30 ML UDC PO ONE (09:09)
[2021-06-24] MEDS: Cholecalciferol (VIT D3) 1,000 unit TAB PO SCH (09:51)
[2021-06-24] MEDS: Polyethylene Glycol 3350 17 GM PACKET PO SCH (09:54)
[2021-06-24] MEDS: Sulfamethox/Trimethoprim DS TAB 800/160 mg PO SCH (14:15)
[2021-06-24] MEDS: Nystatin TOP POWDER 15 GM BTL TOPICAL SCH ×2 (14:17→22:26)
[2021-06-24] MEDS: Insulin GLARGINE 100 un/ml 10 ml VIAL SUBCUT SCH (22:14)
[2021-06-24] MEDS: Benzocaine/Menthol LOZ PO PRN (22:26)
[2021-06-25] MEDS: Cholecalciferol (VIT D3) 1,000 unit TAB PO SCH (08:31)
[2021-06-25] MEDS: Polyethylene Glycol 3350 17 GM PACKET PO SCH (08:36)
[2021-06-25] MEDS: Levalbuterol HFA INHALER MDI INH SCH ×2 (09:44→20:12)
[2021-06-25] MEDS: Tiotropium Brom/Olodaterol MDI INH SCH (09:45)
[2021-06-25 09:47] LABS: Hematocrit 35 % (35-47); Hemoglobin 11.9 g/dL (12.0-16.0); Mean Corpuscular HGB Conc 34 g/dL (31-36); Mean Corpuscular Hemoglobin 33 pg (27-31); Mean Corpuscular Volume 99 fL (80-97); Mean Platelet Volume 10.4 fL (7.4-10.4); Platelet Count 186 10^3/uL (150-450); Red Blood Count 3.57 10^6 /uL (3.70-4.87); Red Cell Distribution Width 15 % (10-15); White Blood Count 10.5 10^3/uL (3.5-10.8)
[2021-06-25 10:17] LABS: C Reactive Protein 4.75 mg/L (<8.01); Calcium 8.6 mg/dL (8.6-10.3); Potassium 4.3 mmol/L (3.5-5.0)
[2021-06-25 11:19] LABS: ABS Lymphocytes 0.7 10^3/ul (1.0-4.8); ABS Monocytes 0.5 10^3/ul (0-0.8); ABS Neutrophils 9.3 10^3/ul (1.5-7.7); Eosinophil % 0.3 %; Lymphocyte % 6.3 %; Nucleated Red Blood Cells % 0.1
[2021-06-25] MEDS: Nystatin TOP POWDER 15 GM BTL TOPICAL SCH ×2 (11:23→20:22)
[2021-06-25 11:44] LABS: Urine Appearance Clear; Urine Bilirubin Negative (Negative); Urine Blood Negative (Negative); Urine Color Yellow; Urine Glucose 3+(>=500 mg/dL) (Negative); Urine Ketones Negative (Negative); Urine Nitrite Negative (Negative); Urine Protein Negative (Negative); Urine Urobilinogen Negative (Negative)
[2021-06-25 12:10] LABS: Urine Bacteria Absent (Absent); Urine Red Blood Cell Trace(0-2/hpf) (Absent); Urine Squamous Epithelial Cell Present (Absent); Urine White Blood Cell Trace(0-5/hpf) (Absent)
[2021-06-25] MEDS: Insulin GLARGINE 100 un/ml 10 ml VIAL SUBCUT SCH (20:10)
[2021-06-26] MEDS: Benzocaine/Menthol LOZ PO PRN ×2 (00:14→10:52)
[2021-06-26 05:55] LABS: Hematocrit 35 % (35-47); Hemoglobin 11.7 g/dL (12.0-16.0); Mean Corpuscular HGB Conc 34 g/dL (31-36); Mean Corpuscular Hemoglobin 33 pg (27-31); Mean Corpuscular Volume 99 fL (80-97); Mean Platelet Volume 9.9 fL (7.4-10.4); Platelet Count 183 10^3/uL (150-450); Red Blood Count 3.51 10^6 /uL (3.70-4.87); Red Cell Distribution Width 14 % (10-15); White Blood Count 9.7 10^3/uL (3.5-10.8)
[2021-06-26 06:45] LABS: ABS Monocytes 0.8 10^3/ul (0-0.8); ABS Neutrophils 7.8 10^3/ul (1.5-7.7); Eosinophil % 0.3 %; Lymphocyte % 10.5 %; Nucleated Red Blood Cells % 0.1
[2021-06-26 06:53] LABS: Calcium 8.6 mg/dL (8.6-10.3); Potassium 4.2 mmol/L (3.5-5.0)
[2021-06-26] MEDS: Tiotropium Brom/Olodaterol MDI INH SCH (08:00)
[2021-06-26] MEDS: Levalbuterol HFA INHALER MDI INH SCH (08:00)
[2021-06-26] MEDS: Cholecalciferol (VIT D3) 1,000 unit TAB PO SCH (09:52)
[2021-06-26] MEDS: Polyethylene Glycol 3350 17 GM PACKET PO SCH (09:54)
[2021-06-26] MEDS: Nystatin TOP POWDER 15 GM BTL TOPICAL SCH (10:15)
[2021-06-26] MEDS: Sulfamethox/Trimethoprim DS TAB 800/160 mg PO SCH (10:18)
[2021-06-26 11:42] LABS: Rapid COVID-19 Molecular Undetected (Undetected)
[2021-06-26 11:59] VITALS: BP 110/45
== END 2021-06-26 12:20 | disposition swing bed (61) | DRG 308 ==
LOC: ED 21:55 → SUATTDRO 06-14 02:41 → EDHOLD 06-14 02:41 → MEDTELE 06-14 14:18 → ICU 06-15 17:19 → MEDTELE 06-16 21:34
PROVIDERS: ADMIT Hospitalist; ATTEND Internal Medicine

== ENCOUNTER 2021-09-06 11:15 | Inpatient (IN) ==
[2021-09-06] MEDS ORDERED: Cefepime 1 GM in NS 0.9% 50 ML 50 ML IVPB ONE (11:51)
[2021-09-06] MEDS ORDERED: NS 0.9% 1000 ml BAG 1,000 ML IV ONE (11:51)
[2021-09-06] MEDS ORDERED: methylPREDNISolone SOD SUCC 125 mg 2 ML VIAL IV ONE (11:51)
[2021-09-06 13:12] LABS: Hematocrit 32 % (35-47); Hemoglobin 10.5 g/dL (12.0-16.0); Mean Corpuscular HGB Conc 33 g/dL (31-36); Mean Corpuscular Hemoglobin 33 pg (27-31); Mean Corpuscular Volume 99 fL (80-97); Mean Platelet Volume 10.1 fL (7.4-10.4); Platelet Count 201 10^3/uL (150-450); Red Blood Count 3.23 10^6 /uL (3.70-4.87); Red Cell Distribution Width 15 % (10-15); White Blood Count 14.7 10^3/uL (3.5-10.8)
[2021-09-06 13:35] LABS: ABS Basophils 0.1 10^3/ul (0-0.2); ABS Eosinophils 0.1 10^3/ul (0-0.6); ABS Lymphocytes 1.4 10^3/ul (1.0-4.8); ABS Monocytes 0.6 10^3/ul (0-0.8); ABS Neutrophils 12.4 10^3/ul (1.5-7.7); Eosinophil % 0.7 %; Lymphocyte % 9.8 %
[2021-09-06 13:38] LABS: Albumin 3.5 g/dL (3.2-5.2); Albumin/Globulin Ratio 1.4 (1-3); Calcium 8.5 mg/dL (8.6-10.3); Globulin 2.5 g/dL (2-4); Total Bilirubin 0.7 mg/dL (0.2-1.0); eGFR CKD-EPI 41.1 (>60)
[2021-09-06 13:44] LABS: Activated Partial Thrombo Time 24.6 seconds (26.0-38.0); INR 1.76 (0.86-1.15)
[2021-09-06 13:48] LABS: Potassium 2.6 mmol/L (3.5-5.0)
[2021-09-06] MEDS: KCL 10 MEQ/50 ML IVPREMIX 10 MEQ/50 ML BAG IV SCH ×2 (14:51→15:59)
[2021-09-06 15:02] LABS: High Sensitivity Troponin 1 Hr 14 pg/mL (<15)
[2021-09-06] MEDS ORDERED: Potassium Chlor 20 meq TAB.ER PO ONE (16:14)
[2021-09-06] MEDS ORDERED: Levalbuterol HFA INHALER MDI INH PRN (17:04)
[2021-09-06] MEDS ORDERED: Albuterol HFA INHALER 8 gm MDI INH PRN (17:04)
[2021-09-06] MEDS ORDERED: Albuterol/Ipratropium NEB.SOL (2.5/0.5 MG) 3 ML NEB.SOLN INH PRN (17:04)
[2021-09-06 18:18] LABS: C Reactive Protein 2.59 mg/L (<8.01)
[2021-09-06] MEDS ORDERED: NS 0.9% 1000 ml BAG 1,000 ML IV SCH (18:45)
[2021-09-06 19:05] LABS: Magnesium 2.2 mg/dL (1.9-2.7)
[2021-09-06] MEDS ORDERED: Dextrose 50% Syringe 50 ml 25 GM/50 ML SYRINGE IV PUSH PRN (19:34)
[2021-09-06 20:22] LABS: Urine Appearance Clear; Urine Bilirubin Negative (Negative); Urine Blood 1+ (Negative); Urine Color Straw; Urine Glucose 2+(150 mg/dL) (Negative); Urine Ketones Negative (Negative); Urine Nitrite Negative (Negative); Urine Protein Negative (Negative); Urine Specific Gravity 1.006 (1.002-1.030); Urine Urobilinogen Negative (Negative)
[2021-09-06 20:33] LABS: Urine Bacteria 1+ (Absent); Urine Red Blood Cell Trace(0-2/hpf) (Absent); Urine White Blood Cell Trace(0-5/hpf) (Absent)
[2021-09-06] MEDS ORDERED: Albuterol 2.5mg/3 ml (0.083%) NEB.SOLN INH PRN (21:50)
[2021-09-06 22:07] LABS: Calcium 8.1 mg/dL (8.6-10.3); Potassium 3.6 mmol/L (3.5-5.0); eGFR CKD-EPI 39.7 (>60)
[2021-09-06] MEDS: Cefepime 2 GM in Dextrose 2 GM/50 ML BAG IV SCH (23:20)
[2021-09-07 06:44] LABS: ABS Lymphocytes 0.6 10^3/ul (1.0-4.8); ABS Monocytes 0.2 10^3/ul (0-0.8); ABS Neutrophils 6.7 10^3/ul (1.5-7.7); Hematocrit 31 % (35-47); Hemoglobin 10.1 g/dL (12.0-16.0); Mean Corpuscular HGB Conc 33 g/dL (31-36); Mean Corpuscular Hemoglobin 33 pg (27-31); Mean Corpuscular Volume 100 fL (80-97); Nucleated Red Blood Cells % 0.1; Platelet Count 177 10^3/uL (150-450); Red Blood Count 3.08 10^6 /uL (3.70-4.87); Red Cell Distribution Width 15 % (10-15); White Blood Count 7.5 10^3/uL (3.5-10.8)
[2021-09-07 07:05] LABS: Calcium 8.1 mg/dL (8.6-10.3); Magnesium 2.2 mg/dL (1.9-2.7); Potassium 3.5 mmol/L (3.5-5.0); eGFR CKD-EPI 44.2 (>60)
[2021-09-07] MEDS: Tiotropium Brom/Olodaterol MDI INH SCH (07:46)
[2021-09-07 08:43] LABS: TSH Ultra Thyroid Stim Horm 0.23 mcIU/mL (0.34-5.60)
[2021-09-07 08:45] LABS: Free T4 1.79 ng/dL (0.61-1.12)
[2021-09-07] MEDS: Cefepime 2 GM in Dextrose 2 GM/50 ML BAG IV SCH ×2 (08:50→21:51)
[2021-09-07] MEDS ORDERED: Potassium Chloride LIQUID 20 MEQ/15 ML LIQUID PO ONE (14:08)
[2021-09-07] MEDS: Insulin GLARGINE 100 un/ml 10 ml VIAL SUBCUT SCH (21:42)
[2021-09-08] MEDS: Tiotropium Brom/Olodaterol MDI INH SCH (07:28)
[2021-09-08] MEDS: Cefepime 2 GM in Dextrose 2 GM/50 ML BAG IV SCH ×2 (10:19→22:38)
[2021-09-08 10:54] LABS: Hematocrit 31 % (35-47); Hemoglobin 9.7 g/dL (12.0-16.0); Mean Corpuscular HGB Conc 32 g/dL (31-36); Mean Corpuscular Hemoglobin 32 pg (27-31); Mean Corpuscular Volume 100 fL (80-97); Mean Platelet Volume 10.5 fL (7.4-10.4); Platelet Count 186 10^3/uL (150-450); Red Blood Count 3.05 10^6 /uL (3.70-4.87); Red Cell Distribution Width 15 % (10-15); White Blood Count 12.2 10^3/uL (3.5-10.8)
[2021-09-08 11:16] LABS: Calcium 8.2 mg/dL (8.6-10.3); Potassium 3.6 mmol/L (3.5-5.0); eGFR CKD-EPI 50.3 (>60)
[2021-09-08] MEDS: Insulin GLARGINE 100 un/ml 10 ml VIAL SUBCUT SCH (22:41)
[2021-09-09 06:11] LABS: Hematocrit 30 % (35-47); Hemoglobin 9.4 g/dL (12.0-16.0); Mean Corpuscular HGB Conc 31 g/dL (31-36); Mean Corpuscular Hemoglobin 32 pg (27-31); Mean Corpuscular Volume 103 fL (80-97); Mean Platelet Volume 10.3 fL (7.4-10.4); Platelet Count 165 10^3/uL (150-450); Red Blood Count 2.92 10^6 /uL (3.70-4.87); Red Cell Distribution Width 15 % (10-15)
[2021-09-09 06:38] LABS: Calcium 8.5 mg/dL (8.6-10.3); Magnesium 2.3 mg/dL (1.9-2.7); Potassium 3.9 mmol/L (3.5-5.0)
[2021-09-09 06:43] LABS: eGFR CKD-EPI 54.8 (>60)
[2021-09-09] MEDS: Tiotropium Brom/Olodaterol MDI INH SCH (08:13)
[2021-09-09] MEDS ORDERED: Cyanocobalamin INJ 1,000 MCG/ML VIAL 1 ML VIAL IM ONE (08:30)
[2021-09-09] MEDS: Cefepime 2 GM in Dextrose 2 GM/50 ML BAG IV SCH ×2 (09:00→21:56)
[2021-09-09] MEDS ORDERED: Perflutren Lipid Microsphere 3 ML VIAL ONE (11:32)
[2021-09-09] MEDS: Insulin GLARGINE 100 un/ml 10 ml VIAL SUBCUT SCH (21:55)
[2021-09-10 05:41] LABS: Hematocrit 31 % (35-47); Hemoglobin 9.9 g/dL (12.0-16.0); Mean Corpuscular HGB Conc 32 g/dL (31-36); Mean Corpuscular Hemoglobin 33 pg (27-31); Mean Corpuscular Volume 101 fL (80-97); Mean Platelet Volume 10.5 fL (7.4-10.4); Platelet Count 167 10^3/uL (150-450); Red Blood Count 3.04 10^6 /uL (3.70-4.87); Red Cell Distribution Width 15 % (10-15); White Blood Count 8.1 10^3/uL (3.5-10.8)
[2021-09-10 06:21] LABS: Calcium 8.9 mg/dL (8.6-10.3); Magnesium 2.3 mg/dL (1.9-2.7); Potassium 3.8 mmol/L (3.5-5.0); eGFR CKD-EPI 69.3 (>60)
[2021-09-10] MEDS ORDERED: Potassium Chlor 20 meq TAB.ER PO ONE (06:33)
[2021-09-10] MEDS: Tiotropium Brom/Olodaterol MDI INH SCH (08:39)
[2021-09-10] MEDS: Cefepime 2 GM in Dextrose 2 GM/50 ML BAG IV SCH (15:41)
[2021-09-10] MEDS ORDERED: Cefepime 2 GM in Dextrose 2 GM/50 ML BAG IV SCH (17:00)
[2021-09-10] MEDS: Insulin GLARGINE 100 un/ml 10 ml VIAL SUBCUT SCH (21:31)
[2021-09-11] MEDS ORDERED: Cefepime 2 GM in Dextrose 2 GM/50 ML BAG IV SCH (04:00)
[2021-09-11] MEDS: Tiotropium Brom/Olodaterol MDI INH SCH (08:14)
[2021-09-11 11:39] VITALS: BP 124/68
== END 2021-09-11 15:50 | disposition home health service (06) | DRG 871 ==
LOC: ED 11:15 → EDHOLD 16:16 → SUATTDRO 16:16 → MED 20:31
PROVIDERS: ADMIT Internal Medicine; ATTEND Internal Medicine

== ENCOUNTER 2021-12-10 11:25 | Inpatient (IN) ==
[2021-12-10 14:07] LABS: ABS Basophils 0.1 10^3/ul (0-0.2); ABS Eosinophils 0.1 10^3/ul (0-0.6); ABS Monocytes 0.3 10^3/ul (0-0.8); ABS Neutrophils 10.2 10^3/ul (1.5-7.7); Eosinophil % 1.1 %; Hematocrit 34 % (35-47); Lymphocyte % 8.6 %; Mean Corpuscular HGB Conc 33 g/dL (31-36); Mean Corpuscular Hemoglobin 31 pg (27-31); Mean Corpuscular Volume 96 fL (80-97); Mean Platelet Volume 9.5 fL (7.4-10.4); Platelet Count 204 10^3/uL (150-450); Red Cell Distribution Width 15 % (10-15); White Blood Count 11.7 10^3/uL (3.5-10.8)
[2021-12-10 15:01] LABS: Albumin 3.3 g/dL (3.2-5.2); Albumin/Globulin Ratio 1.3 (1-3); Calcium 9.1 mg/dL (8.6-10.3); Globulin 2.5 g/dL (2-4); Total Bilirubin 0.4 mg/dL (0.2-1.0); Total Protein 5.8 g/dL (6.4-8.9); eGFR CKD-EPI 47.8 (>60)
[2021-12-10 15:30] LABS: Potassium 3.5 mmol/L (3.5-5.0)
[2021-12-10 15:40] LABS: High Sensitivity Troponin 1 Hr 8 pg/mL (<15)
[2021-12-10 17:16] LABS: C Reactive Protein 19.79 mg/L (<8.01)
[2021-12-10] MEDS ORDERED: Dextrose 50% Syringe 50 ml 25 GM/50 ML SYRINGE IV PUSH PRN (18:45)
[2021-12-10] MEDS ORDERED: Iodixanol (CONTRAST) 320 MG/ML 100 ML SDV IV ONE (18:59)
[2021-12-10 19:43] LABS: Osmolality Serum 301 mOsm/kg (275-295)
[2021-12-10 21:03] LABS: Urine Osmo 314 mOsm/kg (150-1150)
[2021-12-10] MEDS: methylPREDNISolone SOD SUCC 40 mg/ml 1 ml VIAL IV SCH (21:54)
[2021-12-10 22:49] LABS: Urine Potassium Concentration 23.5 mmol/L
[2021-12-11] MEDS: Albuterol/Ipratropium NEB.SOL (2.5/0.5 MG) 3 ML NEB.SOLN INH PRN ×2 (00:51→11:47)
[2021-12-11 05:26] LABS: ABS Lymphocytes 0.9 10^3/ul (1.0-4.8); ABS Monocytes 0.4 10^3/ul (0-0.8); ABS Neutrophils 7.8 10^3/ul (1.5-7.7); Hematocrit 33 % (35-47); Hemoglobin 10.6 g/dL (12.0-16.0); Lymphocyte % 9.7 %; Mean Corpuscular HGB Conc 32 g/dL (31-36); Mean Corpuscular Hemoglobin 31 pg (27-31); Mean Corpuscular Volume 96 fL (80-97); Mean Platelet Volume 9.7 fL (7.4-10.4); Platelet Count 208 10^3/uL (150-450); Red Blood Count 3.43 10^6 /uL (3.70-4.87); Red Cell Distribution Width 15 % (10-15); White Blood Count 9.1 10^3/uL (3.5-10.8)
[2021-12-11 05:44] LABS: Albumin 3.3 g/dL (3.2-5.2); Albumin/Globulin Ratio 1.3 (1-3); Calcium 9.1 mg/dL (8.6-10.3); Globulin 2.5 g/dL (2-4); Potassium 3.6 mmol/L (3.5-5.0); Total Bilirubin 0.3 mg/dL (0.2-1.0); Total Protein 5.8 g/dL (6.4-8.9); eGFR CKD-EPI 39.4 (>60)
[2021-12-11] MEDS: Cholecalciferol (VIT D3) 1,000 unit TAB PO SCH (08:16)
[2021-12-11] MEDS: Potassium Chlor 20 meq TAB.ER PO SCH (08:16)
[2021-12-11] MEDS: methylPREDNISolone SOD SUCC 40 mg/ml 1 ml VIAL IV SCH (08:18)
[2021-12-11] MEDS: Sulfamethox/Trimethoprim DS TAB 800/160 mg PO SCH (08:25)
[2021-12-11 10:26] LABS: Magnesium 2.2 mg/dL (1.9-2.7)
[2021-12-11] MEDS ORDERED: Potassium Chlor 20 meq TAB.ER PO ONE (21:00)
[2021-12-12 05:44] LABS: ABS Lymphocytes 1.1 10^3/ul (1.0-4.8); ABS Monocytes 1.2 10^3/ul (0-0.8); ABS Neutrophils 8.3 10^3/ul (1.5-7.7); Eosinophil % 0.3 %; Hematocrit 34 % (35-47); Hemoglobin 10.7 g/dL (12.0-16.0); Lymphocyte % 10.2 %; Mean Corpuscular HGB Conc 32 g/dL (31-36); Mean Corpuscular Hemoglobin 30 pg (27-31); Mean Corpuscular Volume 96 fL (80-97); Mean Platelet Volume 9.6 fL (7.4-10.4); Platelet Count 212 10^3/uL (150-450); Red Blood Count 3.52 10^6 /uL (3.70-4.87); Red Cell Distribution Width 15 % (10-15); White Blood Count 10.6 10^3/uL (3.5-10.8)
[2021-12-12 05:56] LABS: Calcium 9.3 mg/dL (8.6-10.3); eGFR CKD-EPI 44.2 (>60)
[2021-12-12] MEDS: Potassium Chlor 20 meq TAB.ER PO SCH (08:25)
[2021-12-12] MEDS: Cholecalciferol (VIT D3) 1,000 unit TAB PO SCH (08:25)
[2021-12-12] MEDS: methylPREDNISolone SOD SUCC 40 mg/ml 1 ml VIAL IV SCH (08:26)
[2021-12-12] MEDS: Albuterol/Ipratropium NEB.SOL (2.5/0.5 MG) 3 ML NEB.SOLN INH PRN (13:03)
[2021-12-12] MEDS: Cefepime 1 GM in Dextrose 1 GM/50 ML BAG IV SCH (15:09)
[2021-12-13] MEDS: Cefepime 1 GM in Dextrose 1 GM/50 ML BAG IV SCH ×2 (02:47→13:16)
[2021-12-13 05:58] LABS: Calcium 9.2 mg/dL (8.6-10.3); Potassium 4.2 mmol/L (3.5-5.0); eGFR CKD-EPI 38.1 (>60)
[2021-12-13] MEDS: Sulfamethox/Trimethoprim DS TAB 800/160 mg PO SCH (08:06)
[2021-12-13] MEDS: Potassium Chlor 20 meq TAB.ER PO SCH (08:07)
[2021-12-13] MEDS: Cholecalciferol (VIT D3) 1,000 unit TAB PO SCH (08:08)
[2021-12-13] MEDS ORDERED: methylPREDNISolone SOD SUCC 40 mg/ml 1 ml VIAL IV SCH (09:00)
[2021-12-13] MEDS ORDERED: Albuterol/Ipratropium NEB.SOL (2.5/0.5 MG) 3 ML NEB.SOLN INH ONE (14:24)
[2021-12-13] MEDS ORDERED: Polyethylene Glycol 3350 17 GM PACKET PO PRN (16:15)
[2021-12-13] MEDS: Magnesium Hydroxide LIQ 30 ML UDC PO SCH (19:59)
[2021-12-14] MEDS: Cefepime 1 GM in Dextrose 1 GM/50 ML BAG IV SCH ×2 (02:30→14:53)
[2021-12-14 06:00] LABS: Potassium 4.2 mmol/L (3.5-5.0); eGFR CKD-EPI 41.1 (>60)
[2021-12-14] MEDS: Magnesium Hydroxide LIQ 30 ML UDC PO SCH ×2 (08:34→20:55)
[2021-12-14] MEDS: Cholecalciferol (VIT D3) 1,000 unit TAB PO SCH (08:37)
[2021-12-14] MEDS: Potassium Chlor 20 meq TAB.ER PO SCH (08:38)
[2021-12-14] MEDS: Albuterol/Ipratropium NEB.SOL (2.5/0.5 MG) 3 ML NEB.SOLN INH PRN (09:45)
[2021-12-14] MEDS: Sulfamethox/Trimethoprim DS TAB 800/160 mg PO SCH (18:08)
[2021-12-14] MEDS ORDERED: Albuterol/Ipratropium NEB.SOL (2.5/0.5 MG) 3 ML NEB.SOLN INH SCH (19:00)
[2021-12-15] MEDS: Cefepime 1 GM in Dextrose 1 GM/50 ML BAG IV SCH ×2 (02:06→14:01)
[2021-12-15 06:45] LABS: ABS Lymphocytes 1.1 10^3/ul (1.0-4.8); ABS Monocytes 1.2 10^3/ul (0-0.8); ABS Neutrophils 9.5 10^3/ul (1.5-7.7); Eosinophil % 0.2 %; Hematocrit 35 % (35-47); Hemoglobin 11.1 g/dL (12.0-16.0); Lymphocyte % 9.5 %; Mean Corpuscular HGB Conc 32 g/dL (31-36); Mean Corpuscular Hemoglobin 30 pg (27-31); Mean Corpuscular Volume 96 fL (80-97); Mean Platelet Volume 9.3 fL (7.4-10.4); Nucleated Red Blood Cells % 0.1; Platelet Count 219 10^3/uL (150-450); Red Blood Count 3.68 10^6 /uL (3.70-4.87); Red Cell Distribution Width 15 % (10-15); White Blood Count 11.9 10^3/uL (3.5-10.8)
[2021-12-15 06:59] LABS: Calcium 9.1 mg/dL (8.6-10.3); Potassium 4.6 mmol/L (3.5-5.0); eGFR CKD-EPI 38.7 (>60)
[2021-12-15] MEDS: Albuterol/Ipratropium NEB.SOL (2.5/0.5 MG) 3 ML NEB.SOLN INH SCH ×3 (07:26→19:15)
[2021-12-15] MEDS: Cholecalciferol (VIT D3) 1,000 unit TAB PO SCH (08:35)
[2021-12-15] MEDS: Potassium Chlor 20 meq TAB.ER PO SCH (08:36)
[2021-12-15] MEDS: Magnesium Hydroxide LIQ 30 ML UDC PO SCH ×2 (10:30→20:53)
[2021-12-15] MEDS: Sulfamethox/Trimethoprim DS TAB 800/160 mg PO SCH (10:37)
[2021-12-16] MEDS: Cefepime 1 GM in Dextrose 1 GM/50 ML BAG IV SCH ×2 (01:48→14:32)
[2021-12-16 05:58] LABS: Hematocrit 35 % (35-47); Hemoglobin 11.1 g/dL (12.0-16.0); Mean Corpuscular HGB Conc 32 g/dL (31-36); Mean Corpuscular Hemoglobin 30 pg (27-31); Mean Corpuscular Volume 94 fL (80-97); Mean Platelet Volume 9.4 fL (7.4-10.4); Platelet Count 219 10^3/uL (150-450); Red Blood Count 3.69 10^6 /uL (3.70-4.87); Red Cell Distribution Width 15 % (10-15); White Blood Count 11.3 10^3/uL (3.5-10.8)
[2021-12-16 06:14] LABS: Calcium 9.2 mg/dL (8.6-10.3); Potassium 4.1 mmol/L (3.5-5.0); eGFR CKD-EPI 27.4 (>60)
[2021-12-16 06:20] LABS: ABS Eosinophils 0.1 10^3/ul (0-0.6); ABS Lymphocytes 1.3 10^3/ul (1.0-4.8); ABS Monocytes 1.2 10^3/ul (0-0.8); ABS Neutrophils 8.7 10^3/ul (1.5-7.7); Eosinophil % 0.9 %; Lymphocyte % 11.6 %; Nucleated Red Blood Cells % 0.1
[2021-12-16] MEDS: Albuterol/Ipratropium NEB.SOL (2.5/0.5 MG) 3 ML NEB.SOLN INH SCH ×3 (07:18→20:24)
[2021-12-16] MEDS: Sulfamethox/Trimethoprim DS TAB 800/160 mg PO SCH (08:05)
[2021-12-16] MEDS: Cholecalciferol (VIT D3) 1,000 unit TAB PO SCH (08:05)
[2021-12-16] MEDS: Potassium Chlor 20 meq TAB.ER PO SCH (08:06)
[2021-12-16] MEDS: Magnesium Hydroxide LIQ 30 ML UDC PO SCH ×2 (08:07→20:55)
[2021-12-16] MEDS ORDERED: NS 0.9% 1000 ml BAG 1,000 ML IV SCH (11:15)
[2021-12-16 15:01] LABS: Myoglobin 19.2 ng/mL (14.3-65.8)
[2021-12-17] MEDS: Cefepime 1 GM in Dextrose 1 GM/50 ML BAG IV SCH ×2 (01:10→14:05)
[2021-12-17 05:47] LABS: Hematocrit 33 % (35-47); Hemoglobin 10.6 g/dL (12.0-16.0); Mean Corpuscular HGB Conc 32 g/dL (31-36); Mean Corpuscular Hemoglobin 30 pg (27-31); Mean Corpuscular Volume 95 fL (80-97); Mean Platelet Volume 9.6 fL (7.4-10.4); Platelet Count 204 10^3/uL (150-450); Red Blood Count 3.52 10^6 /uL (3.70-4.87); Red Cell Distribution Width 15 % (10-15); White Blood Count 10.1 10^3/uL (3.5-10.8)
[2021-12-17 06:04] LABS: ABS Eosinophils 0.2 10^3/ul (0-0.6); ABS Lymphocytes 1.3 10^3/ul (1.0-4.8); ABS Monocytes 1.1 10^3/ul (0-0.8); ABS Neutrophils 7.5 10^3/ul (1.5-7.7); Eosinophil % 2.4 %; Lymphocyte % 12.5 %; Nucleated Red Blood Cells % 0.1
[2021-12-17 06:22] LABS: Calcium 8.5 mg/dL (8.6-10.3); Magnesium 2.5 mg/dL (1.9-2.7); Potassium 3.9 mmol/L (3.5-5.0); eGFR CKD-EPI 31.2 (>60)
[2021-12-17] MEDS ORDERED: Al Hydrox/Mg Hydrox/Simet LIQ 30 ML UDC PO ONE ×2 (06:46→08:30)
[2021-12-17] MEDS ORDERED: Metoprolol Tartrate 5 mg VIAL 5 ml VIAL (1 mg/ml) IV ONE (07:09)
[2021-12-17] MEDS: Albuterol/Ipratropium NEB.SOL (2.5/0.5 MG) 3 ML NEB.SOLN INH SCH ×2 (07:12→13:28)
[2021-12-17] MEDS ORDERED: NS 0.9% 1000 ml BAG 1,000 ML IV SCH ×3 (07:45→13:39)
[2021-12-17] MEDS: Cholecalciferol (VIT D3) 1,000 unit TAB PO SCH (08:02)
[2021-12-17] MEDS: Potassium Chlor 20 meq TAB.ER PO SCH (08:04)
[2021-12-17] MEDS: Magnesium Hydroxide LIQ 30 ML UDC PO SCH ×2 (08:05→21:22)
[2021-12-17] MEDS: Sulfamethox/Trimethoprim DS TAB 800/160 mg PO SCH (08:21)
[2021-12-17 09:02] LABS: High Sensitivity Troponin 1 Hr 11 pg/mL (<15)
[2021-12-17] MEDS: dilTIAZem 30 MG TAB PO SCH ×3 (15:25→23:52)
[2021-12-17] MEDS: Fluticasone NASAL SPRAY 50MCG 16 gm SPRAY BTL BOTH NARES SCH (21:22)
[2021-12-17 21:32] LABS: Adenovirus Undetected (Undetected); Bordetella parapertussis Undetected (Undetected); Bordetella pertussis Undetected (Undetected); Chlamydophila pneumoniae Undetected (Undetected); Coronavirus 229E Undetected (Undetected); Coronavirus HKU1 Undetected (Undetected); Coronavirus NL63 Undetected (Undetected); Coronavirus OC43 Undetected (Undetected); Human Metapneumovirus Undetected (Undetected); Human Rhinovirus/Enterovirus Undetected (Undetected); Influenza A Undetected (Undetected); Influenza B Undetected (Undetected); Mycoplasmoides pneumoniae Undetected (Undetected); Parainfluenza Virus 1 Undetected (Undetected); Parainfluenza Virus 2 Undetected (Undetected); Parainfluenza Virus 3 Undetected (Undetected); Parainfluenza Virus 4 Undetected (Undetected); Respiratory Syncytial Virus Undetected (Undetected); Specimen Source NASOPHARYNGEAL SWAB
[2021-12-18] MEDS: Cefepime 1 GM in Dextrose 1 GM/50 ML BAG IV SCH ×2 (02:20→14:18)
[2021-12-18 05:29] LABS: Hematocrit 32 % (35-47); Hemoglobin 10.2 g/dL (12.0-16.0); Mean Corpuscular HGB Conc 32 g/dL (31-36); Mean Corpuscular Hemoglobin 31 pg (27-31); Mean Corpuscular Volume 95 fL (80-97); Mean Platelet Volume 9.6 fL (7.4-10.4); Platelet Count 179 10^3/uL (150-450); Red Blood Count 3.32 10^6 /uL (3.70-4.87); Red Cell Distribution Width 16 % (10-15); White Blood Count 11.2 10^3/uL (3.5-10.8)
[2021-12-18 06:03] LABS: Calcium 8.8 mg/dL (8.6-10.3); Magnesium 2.5 mg/dL (1.9-2.7); Potassium 4.3 mmol/L (3.5-5.0); eGFR CKD-EPI 38.7 (>60)
[2021-12-18] MEDS: dilTIAZem 30 MG TAB PO SCH ×4 (06:27→23:44)
[2021-12-18] MEDS: Sulfamethox/Trimethoprim DS TAB 800/160 mg PO SCH (09:33)
[2021-12-18] MEDS: Magnesium Hydroxide LIQ 30 ML UDC PO SCH ×2 (09:33→19:54)
[2021-12-18] MEDS: Potassium Chlor 20 meq TAB.ER PO SCH (09:35)
[2021-12-18] MEDS: Cholecalciferol (VIT D3) 1,000 unit TAB PO SCH (09:36)
[2021-12-18] MEDS ORDERED: NS 0.9% 1000 ml BAG 1,000 ML IV SCH (10:45)
[2021-12-18] MEDS: Fluticasone NASAL SPRAY 50MCG 16 gm SPRAY BTL BOTH NARES SCH (12:46)
[2021-12-18] MEDS: Albuterol/Ipratropium NEB.SOL (2.5/0.5 MG) 3 ML NEB.SOLN INH SCH ×2 (13:16→19:09)
[2021-12-19] MEDS: Cefepime 1 GM in Dextrose 1 GM/50 ML BAG IV SCH (02:12)
[2021-12-19] MEDS: dilTIAZem 30 MG TAB PO SCH ×4 (04:31→22:41)
[2021-12-19 05:52] LABS: Blood Urea Nitrogen 21 mg/dL (6-24); CO2 Carbon Dioxide 30 mmol/L (22-32); Calcium 8.5 mg/dL (8.6-10.3); Chloride 106 mmol/L (101-111); Glucose 127 mg/dL (70-100); Magnesium 2.5 mg/dL (1.9-2.7); Sodium 140 mmol/L (135-145); eGFR CKD-EPI 56.8 (>60)
[2021-12-19] MEDS: Albuterol/Ipratropium NEB.SOL (2.5/0.5 MG) 3 ML NEB.SOLN INH SCH ×3 (05:58→19:23)
[2021-12-19 06:02] LABS: Anion Gap 4 mmol/L (2-11)
[2021-12-19] MEDS: Sulfamethox/Trimethoprim DS TAB 800/160 mg PO SCH (08:31)
[2021-12-19] MEDS: Cholecalciferol (VIT D3) 1,000 unit TAB PO SCH (08:31)
[2021-12-19] MEDS: Potassium Chlor 20 meq TAB.ER PO SCH (08:32)
[2021-12-19] MEDS: Fluticasone NASAL SPRAY 50MCG 16 gm SPRAY BTL BOTH NARES SCH (08:32)
[2021-12-19] MEDS: Magnesium Hydroxide LIQ 30 ML UDC PO SCH ×2 (08:32→22:42)
[2021-12-19] MEDS ORDERED: NS 0.9% 1000 ml BAG 1,000 ML IV SCH (10:30)
[2021-12-20] MEDS: dilTIAZem 30 MG TAB PO SCH (05:04)
[2021-12-20 05:44] LABS: ABS Eosinophils 0.3 10^3/ul (0-0.6); ABS Lymphocytes 0.9 10^3/ul (1.0-4.8); ABS Neutrophils 10.7 10^3/ul (1.5-7.7); Eosinophil % 2.7 %; Hematocrit 31 % (35-47); Hemoglobin 9.9 g/dL (12.0-16.0); Lymphocyte % 6.9 %; Mean Corpuscular HGB Conc 32 g/dL (31-36); Mean Corpuscular Hemoglobin 31 pg (27-31); Mean Corpuscular Volume 97 fL (80-97); Mean Platelet Volume 9.8 fL (7.4-10.4); Platelet Count 198 10^3/uL (150-450); Red Blood Count 3.21 10^6 /uL (3.70-4.87); Red Cell Distribution Width 16 % (10-15)
[2021-12-20 06:17] LABS: Calcium 8.7 mg/dL (8.6-10.3); Magnesium 2.7 mg/dL (1.9-2.7); eGFR CKD-EPI 59.5 (>60)
[2021-12-20 06:24] LABS: Potassium 5.5 mmol/L (3.5-5.0)
[2021-12-20] MEDS: Albuterol/Ipratropium NEB.SOL (2.5/0.5 MG) 3 ML NEB.SOLN INH SCH ×2 (06:59→12:22)
[2021-12-20] MEDS: Cholecalciferol (VIT D3) 1,000 unit TAB PO SCH (09:41)
[2021-12-20] MEDS: Sulfamethox/Trimethoprim DS TAB 800/160 mg PO SCH (09:41)
[2021-12-20] MEDS: Magnesium Hydroxide LIQ 30 ML UDC PO SCH (09:41)
[2021-12-20] MEDS ORDERED: Acetylcysteine INHALATION SOL 200 MG/ML NEB.SOLN 10 ML INH ONE (10:34)
[2021-12-20] MEDS: Fluticasone NASAL SPRAY 50MCG 16 gm SPRAY BTL BOTH NARES SCH (12:13)
[2021-12-20 14:32] VITALS: BP 101/55
== END 2021-12-20 17:03 | disposition home or self-care (01) | DRG 189 ==
LOC: ED 11:25 → EDHOLD 11:25 → SUATTDRO 17:41 → EDHOLD 22:55 → MED 23:40 → SUATTDRO 12-12 18:34 → MEDTELE 12-17 09:16
PROVIDERS: ADMIT Internal Medicine; ATTEND Student in an Organized Health Care Education/Training Program